=== PATIENT | female | born 1950 | race Caucasian/White ===

== ENCOUNTER → 2016-12-24 | Outpatient (CLI) | payer OTHER ==
[~2016-12-24] MED LIST: ASCO10004 PO; CALC1TAB4 PO; FLUO20TA25 PO; MULT-709 PO; OMEG1CAP23 PO; OMEP40CA6 PO; OMNIPAQUE 350 MG/ML, 100ML BOTTLE ONE; TRAM50TA2 PO; VIT1CAPS10 PO; VITA400C43 PO
== END | disposition home or self-care (01) ==
LOC: CFH 12:16
PROVIDERS: ATTEND Otolaryngology
DX: C77.0 Secondary and unspecified malignant neoplasm of lymph nodes of head, face and neck (principal)
CPT/HCPCS: 70491; Q9967

== ENCOUNTER → 2016-12-25 | Outpatient (CLI) | payer OTHER ==
[~2016-12-25] MED LIST changes: -OMNIPAQUE 350 MG/ML, 100ML BOTTLE ONE
== END | disposition home or self-care (01) ==
LOC: PETCFH 09:13
PROVIDERS: ATTEND Otolaryngology
DX: K57.30 Diverticulosis of large intestine without perforation or abscess without bleeding (principal); C77.0 Secondary and unspecified malignant neoplasm of lymph nodes of head, face and neck; K46.9 Unspecified abdominal hernia without obstruction or gangrene; Z90.49 Acquired absence of other specified parts of digestive tract
CPT/HCPCS: 78815; A9552

== ENCOUNTER 2016-12-27 09:44 | Inpatient (IN) | payer OTHER ==
[2016-12-24 09:28] LABS: HEMOGLOBIN 15.6 g/dL (11.7-16.4); WHITE BLOOD COUNT 7.6 x10^3/uL (3.4-10)
[2016-12-24 09:37] LABS: ASPARTATE AMINO TRANSFERASE 25 U/L (15-37); BLOOD UREA NITROGEN 10 mg/dL (7-18)
[~2016-12-27] VITALS: Ht 163.8 cm; Wt 72.0 kg
[2016-12-27] MEDS ORDERED: LACTATED RINGERS 1,000 ML IV SCH (10:13)
[2016-12-27 10:14] VITALS: BP 152/77
[2016-12-27] MEDS ORDERED: BACITRACIN OINT 500U/GM, 15 GM ONE (11:44)
[2016-12-27] MEDS ORDERED: OXYMETAZOLINE NASAL SPRAY 0.05%, 15ML ONE (11:44)
[2016-12-27] MEDS ORDERED: EPINEPHRINE 1 MG/ML, 1ML ONE (11:44)
[2016-12-27] MEDS ORDERED: LIDOCAINE/PF 1%, 30ML ONE (11:44)
[2016-12-27] MEDS ORDERED: EPINEPHRINE TOPICAL SOLN 1 MG/ML, 30ML ONE (11:44)
[2016-12-27] MEDS ORDERED: FENTANYL PF 100 MCG/2ML ONE ×4 (11:46→16:18)
[2016-12-27] MEDS ORDERED: MIDAZOLAM 1 MG/ML, 2ML ONE (11:46)
[2016-12-27] MEDS ORDERED: KETAMINE 10 MG/ML, 20ML ONE ×2 (11:46→12:43)
[2016-12-27] MEDS ORDERED: ROCURONIUM 10 MG/ML ONE (12:43)
[2016-12-27] MEDS ORDERED: ONDANSETRON 2MG/ML, 2ML ONE (12:43)
[2016-12-27] MEDS ORDERED: SUCCINYLCHOLINE 20 MG/ML, 10ML ONE (12:43)
[2016-12-27] MEDS ORDERED: GLYCOPYRROLATE 0.2MG/1ML ONE (12:43)
[2016-12-27] MEDS ORDERED: DEXAMETHASONE 4 MG/ML, 1ML ONE (12:43)
[2016-12-27] MEDS ORDERED: PROPOFOL 10 MG/ML, 20ML ONE (12:43)
[2016-12-27] MEDS ORDERED: NEOSTIGMINE 1 MG/ML, 10ML ONE (12:43)
[2016-12-27] MEDS ORDERED: CEFAZOLIN 1,000 MG ONE (12:43)
[2016-12-27] MEDS ORDERED: HYDROmorphone 1 MG/ML, 1ML ONE ×2 (15:13→16:45)
[2016-12-27] MEDS ORDERED: PROMETHAZINE 25 MG/ML, 1ML IV PRN (16:00)
[2016-12-27] MEDS ORDERED: ALBUTEROL SULFATE 2.5 MG/3 ML NPPB PRN (16:00)
[2016-12-27] MEDS ORDERED: OXYcodone 5 MG/5 ML ORAL.SOL UDC PO PRN (16:00)
[2016-12-27] MEDS ORDERED: hydrALAzine 20 MG/ML, 1ML IV PRN (16:00)
[2016-12-27] MEDS ORDERED: ACETAMINOPHEN 325 MG TABLET PO PRN (16:00)
[2016-12-27] MEDS ORDERED: HYDROmorphone 1 MG/ML, 1ML IV PRN (16:00)
[2016-12-27] MEDS: FENTANYL PF 100 MCG/2ML IV PRN ×4 (16:00→16:42)
[2016-12-27] MEDS ORDERED: MIDAZOLAM 1 MG/ML, 2ML IV PRN (16:00)
[2016-12-27] MEDS ORDERED: hydrALAzine 20 MG/ML, 1ML ONE (16:09)
[2016-12-27] MEDS ORDERED: ACETAMINOPHEN 650 MG/20.3 ML UDC ONE (16:14)
[2016-12-27] MEDS ORDERED: OXYcodone 5 MG/5 ML ORAL.SOL UDC ONE (16:14)
[2016-12-27] MEDS ORDERED: PROMETHAZINE 25 MG/ML, 1ML ONE (16:35)
[2016-12-27] MEDS ORDERED: ONDANSETRON 2MG/ML, 2ML IV PRN (17:30)
[2016-12-27] MEDS ORDERED: MORPHINE SULFATE 4 MG/ML, 1ML IV PRN (17:30)
[2016-12-27 18:19] VITALS: BP 155/91
[2016-12-27] MEDS: OXYcodone/APAP 10/325MG TABLET PO PRN ×2 (19:21→23:31)
[2016-12-27] MEDS: OMEPRAZOLE 20 MG CAPSULE.DR PO SCH (20:08)
[2016-12-27] MEDS: CEFAZOLIN PMX 1GM/50ML 50 ML IVPB SCH (20:52)
[2016-12-27 23:43] VITALS: BP 123/79
[2016-12-27 23:48] VITALS: BP 138/71
[2016-12-28] MEDS: OXYcodone/APAP 10/325MG TABLET PO PRN ×6 (03:25→23:59)
[2016-12-28 03:30] VITALS: BP 134/64
[2016-12-28] MEDS: CEFAZOLIN PMX 1GM/50ML 50 ML IVPB SCH ×3 (04:49→21:18)
[2016-12-28 07:52] VITALS: BP 136/81
[2016-12-28] MEDS: MUPIROCIN OINT 2%, 22GM TP SCH ×2 (08:54→21:19)
[2016-12-28] MEDS: NICOTINE 14MG/24 HR PATCH.TD24 TD SCH (08:54)
[2016-12-28] MEDS: OMEGA-3/FISH OIL CAPSULE PO SCH (08:54)
[2016-12-28] MEDS: FLUOXETINE 20 MG CAPSULE PO SCH (08:54)
[2016-12-28] MEDS: CALCIUM/VITAMIN D3 250-125 TABLET PO SCH (08:54)
[2016-12-28 13:47] VITALS: BP 111/57
[2016-12-28] MEDS: OMEPRAZOLE 20 MG CAPSULE.DR PO SCH (20:05)
[2016-12-28 20:06] VITALS: BP 136/62
[2016-12-29 00:41] VITALS: BP 129/69
[2016-12-29] MEDS: OXYcodone/APAP 10/325MG TABLET PO PRN ×5 (03:52→20:33)
[2016-12-29] MEDS: CEFAZOLIN PMX 1GM/50ML 50 ML IVPB SCH ×3 (04:57→20:33)
[2016-12-29 07:51] VITALS: BP 130/79
[2016-12-29] MEDS: CALCIUM/VITAMIN D3 250-125 TABLET PO SCH (08:17)
[2016-12-29] MEDS: NICOTINE 14MG/24 HR PATCH.TD24 TD SCH (08:17)
[2016-12-29] MEDS: FLUOXETINE 20 MG CAPSULE PO SCH (08:17)
[2016-12-29] MEDS: MUPIROCIN OINT 2%, 22GM TP SCH ×2 (08:17→20:34)
[2016-12-29] MEDS: OMEGA-3/FISH OIL CAPSULE PO SCH (08:17)
[2016-12-29 15:31] VITALS: BP 149/79
[2016-12-29 20:17] VITALS: BP 160/82
[2016-12-29] MEDS: OMEPRAZOLE 20 MG CAPSULE.DR PO SCH (20:34)
[2016-12-30] MEDS: OXYcodone/APAP 10/325MG TABLET PO PRN ×3 (00:39→11:44)
[2016-12-30 01:47] VITALS: BP 123/64
[2016-12-30] MEDS: ALBUTEROL/IPRATROPIUM 2.5MG/0.5MG, 3 ML HHN SCH ×2 (02:15→10:50)
[2016-12-30] MEDS: CEFAZOLIN PMX 1GM/50ML 50 ML IVPB SCH ×2 (04:52→13:30)
[2016-12-30] MEDS: CALCIUM/VITAMIN D3 250-125 TABLET PO SCH (07:54)
[2016-12-30] MEDS: NICOTINE 14MG/24 HR PATCH.TD24 TD SCH (07:54)
[2016-12-30] MEDS: MUPIROCIN OINT 2%, 22GM TP SCH (07:54)
[2016-12-30] MEDS: FLUOXETINE 20 MG CAPSULE PO SCH (07:54)
[2016-12-30] MEDS: OMEGA-3/FISH OIL CAPSULE PO SCH (07:54)
[2016-12-30 08:20] VITALS: BP 123/76
[2016-12-30] MEDS ORDERED: FLUTICASONE/VILANTEROL 200-25MCG/INH INH SCH (09:00)
[2016-12-30] MEDS ORDERED: OMNIPAQUE 350 MG/ML, 100ML BOTTLE ONE (09:26)
[2016-12-30 09:56] LABS: BLOOD UREA NITROGEN 2 mg/dL (7-18)
[2016-12-30 10:01] LABS: IS PT STATUS REG ER OR PRE ER? NO
[2016-12-30] MEDS ORDERED: POTASSIUM CHLORIDE 20 MEQ TAB.ER.PRT PO ONE (11:00)
[2016-12-30 14:11] VITALS: BP 122/68
== END 2016-12-30 15:05 | disposition home or self-care (01) | DRG 579 ==
LOC: OUT 09:44 → 4NOR 17:13 → OUT 17:17 → OBSVTOIN 17:17 → 4NOR 17:17 → DCLOUNGE 12-30 14:35
PROVIDERS: ADMIT Otolaryngology; ATTEND Otolaryngology
PROC: 0KT Muscles, Resection (ICD-10-PCS; 2016-12-27)
PROC: 07T20ZZ Resection of Left Neck Lymphatic, Open Approach (ICD-10-PCS; principal; 2016-12-27 12:00)
PROC: 0CJS8ZZ Inspection of Larynx, Via Natural or Artificial Opening Endoscopic (ICD-10-PCS; 2016-12-27 12:00)
DX: C44.42 Squamous cell carcinoma of skin of scalp and neck (principal); J96.01 Acute respiratory failure with hypoxia; K21.9 Gastro-esophageal reflux disease without esophagitis; J43.9 Emphysema, unspecified; F17.210 Nicotine dependence, cigarettes, uncomplicated; Z87.11 Personal history of peptic ulcer disease; Z98.49 Cataract extraction status, unspecified eye; Z82.49 Family history of ischemic heart disease and other diseases of the circulatory system
CPT/HCPCS: 36415; 71020; 71275; 80048; 80053; 84484; 85025; 86850; 86900; 88307; 93005; 94640; C1729; J0171; J0690; J1100; J1170; J2250; J2405; J2550; J2704; J2710; J3010; J3490; J7620; Q9967; G0378; J0330; J7120

== ENCOUNTER → 2017-03-03 | Outpatient (CLI) | payer OTHER | END | disposition home or self-care (01) | LOC: ROC 09:23 | PROVIDERS: ATTEND Radiology Radiation Oncology | DX: C76.0 Malignant neoplasm of head, face and neck (principal); Z88.5 Allergy status to narcotic agent | CPT/HCPCS: 99214; G0463 ==

== ENCOUNTER 2017-05-16 07:01 | Inpatient (IN) | payer OTHER ==
[~2017-05-16] VITALS: Ht 162.6 cm; Wt 66.7 kg
[2017-05-16] MEDS ORDERED: SODIUM CHLORIDE FLUSH 10ML SYR IVF ONE (07:30)
[2017-05-16 07:50] LABS: INTERNATIONAL NORMALIZED RATIO 1.14 (0.93-1.1); PROTHROMBIN TIME 11.8 Seconds (9.6-11.5)
[2017-05-16 07:54] LABS: ALANINE AMINOTRANSFERASE 11 U/L (12-78); ALBUMIN 2.3 g/dL (3.4-5.0); ANION GAP 5 mmol/L (5-15); CALCIUM 7.6 mg/dL (8.5-10.1); CHLORIDE 106 mmol/L (98-107); CREATININE 0.44 mg/dL (0.55-1.02)
[2017-05-16 07:56] LABS: ALKALINE PHOSPHATASE 33 U/L (45-117); BASOPHILS % (AUTO) 0 % (0-1); BILIRUBIN,TOTAL 0.3 mg/dL (0.2-1.0); EOSINOPHILS # (AUTO) 0.01 x10^3/uL (0-0.4); EOSINOPHILS % (AUTO) 0 % (1-7); LYMPHOCYTES # (AUTO) 0.27 x10^3/uL (1-3.4); LYMPHOCYTES % (AUTO) 4 % (22-44); MD NO; MEAN CORPUSCULAR HEMOGLOBIN 32.6 pg (27.0-34.8); MEAN CORPUSCULAR HGB CONC 33.3 g/dL (32.4-35.8); MEAN CORPUSCULAR VOLUME 97.8 fL (80-100); MEAN PLATELET VOLUME 7.4 fL (7.4-10.4); MONOCYTES # (AUTO) 0.49 x10^3/uL (0.2-0.8); MONOCYTES % (AUTO) 7 % (2-9); NEUTROPHILS # (AUTO) 5.84 x10^3/uL (1.8-6.8); NEUTROPHILS % (AUTO) 88 % (42-75); PLATELET COUNT 159 x10^3/uL (130-400); RED CELL DISTRIBUTION WIDTH 14.1 % (9.6-15.2); TOTAL PROTEIN 5.1 g/dL (6.4-8.2)
[2017-05-16] MEDS ORDERED: OMNIPAQUE 350 MG/ML, 100ML BOTTLE ONE (08:37)
[2017-05-16] MEDS ORDERED: MAGIC MOUTHWASH PO (09:26)
[2017-05-16] MEDS ORDERED: SODIUM CHLORIDE 0.9% 1,000ML IVBOLUS ONE ×2 (11:00→13:30)
[2017-05-16] MEDS ORDERED: HYDROcodone/APAP 5/325 TABLET ONE (11:32)
[2017-05-16] MEDS: SODIUM CHLORIDE 0.9% 1,000 ML IV SCH (11:47)
[2017-05-16] MEDS ORDERED: HYDROcodone/APAP 5/325 TABLET PO ONE (12:00)
[2017-05-16] MEDS: PANTOPROZOLE 40MG TABLET PO SCH (12:00)
[2017-05-16] MEDS ORDERED: BISACODYL 10 MG SUPP PR PRN (12:00)
[2017-05-16] MEDS ORDERED: DOCUSATE 100 MG CAPSULE PO PRN (12:00)
[2017-05-16] MEDS ORDERED: POLYETHYLENE GLYCOL 17 GM PACKET PO PRN (12:00)
[2017-05-16] MEDS ORDERED: MAGIC MOUTHWASH PO SCH (12:00)
[2017-05-16] MEDS ORDERED: LABETALOL 5MG/ML, 20ML IVPush PRN (12:00)
[2017-05-16] MEDS: SUCRALFATE 1 GM/10 ML UDC PO SCH ×2 (16:00→21:30)
[2017-05-16 17:05] VITALS: BP 103/60
[2017-05-16] MEDS: maalox/diphenh/lido/sucralfate 5 ML PO SCH ×2 (17:30→23:18)
[2017-05-16 20:22] VITALS: BP 100/62
[2017-05-17] VITALS (20 sets, daily range): BP systolic 76–123; BP diastolic 46–79
[2017-05-17] MEDS: PANTOPROZOLE 40MG TABLET PO SCH (00:48)
[2017-05-17] MEDS: SODIUM CHLORIDE 0.9% 1,000 ML IV SCH (00:49)
[2017-05-17] MEDS: maalox/diphenh/lido/sucralfate 5 ML PO SCH ×5 (05:30→23:03)
[2017-05-17] MEDS: SUCRALFATE 1 GM/10 ML UDC PO SCH ×4 (08:16→21:00)
[2017-05-17] MEDS: ONDANSETRON 2MG/ML, 2ML IVPush PRN (08:36)
[2017-05-17] MEDS ORDERED: TEMPLATE NON-FORMULARY MED. (Vit C/Vit E/Lutein/Min/Omega-3** (Ocuvite Softgel**) 1 TAB) PO SCH (09:00)
[2017-05-17] MEDS ORDERED: PANTOPRAZOLE 80 MG in SODIUM CHLORIDE 0.9% 50 ML IV ONE (09:00)
[2017-05-17 09:06] LABS: ANION GAP 6 mmol/L (5-15); CALCIUM 7.2 mg/dL (8.5-10.1); CHLORIDE 104 mmol/L (98-107); CREATININE 0.28 mg/dL (0.55-1.02)
[2017-05-17] MEDS: VITAMIN E 400 UNITS CAPSULE PO SCH ×2 (09:19→09:26)
[2017-05-17] MEDS: OMEGA-3/FISH OIL CAPSULE PO SCH ×2 (09:19→09:26)
[2017-05-17] MEDS: MULTIVITAMINS/MINERALS TABLET PO SCH ×2 (09:20→09:26)
[2017-05-17] MEDS: FLUOXETINE 20 MG CAPSULE PO SCH (09:20)
[2017-05-17] MEDS: CALCIUM/VITAMIN D3 250-125 TABLET PO SCH ×2 (09:20→09:26)
[2017-05-17] MEDS: ASCORBIC ACID 500 MG TABLET PO SCH ×2 (09:20→09:26)
[2017-05-17 09:42] LABS: MEAN CORPUSCULAR HEMOGLOBIN 30.9 pg (27.0-34.8); MEAN CORPUSCULAR HGB CONC 34.2 g/dL (32.4-35.8); MEAN CORPUSCULAR VOLUME 90.4 fL (80-100); MEAN PLATELET VOLUME 7.9 fL (7.4-10.4); PLATELET COUNT 118 x10^3/uL (130-400); RED CELL DISTRIBUTION WIDTH 19.6 % (9.6-15.2)
[2017-05-17 10:12] LABS: MD YES
[2017-05-17 10:22] LABS: LYMPH#(MANUAL) 0.31 x10^3/uL (1-3.4); LYMPHS% (MANUAL) 6 % (22-44); MONOS#(MANUAL) 0.21 x10^3/uL (0.3-2.7); MONOS% (MANUAL) 4 % (2-9); SEG#(MANUAL) 4.68 x10^3/uL (1.8-6.8); SEGS% (MANUAL) 90 % (42-75)
[2017-05-17 10:25] LABS: <PLATELET ESTIMATE> ADEQUATE
[2017-05-17 10:26] LABS: <PLT MORPHOLOGY> NORMAL PLT MORPH; ANISOCYTOSIS 1+
[2017-05-17] MEDS: PANTOPRAZOLE 80 MG in SODIUM CHLORIDE 0.9% 100 ML IV SCH ×2 (11:47→23:03)
[2017-05-17] MEDS ORDERED: DIPHENHYDRAMINE 50 MG/ML, 1ML IVPush ONE (14:00)
[2017-05-17] MEDS ORDERED: ACETAMINOPHEN 325 MG TABLET PO ONE (14:00)
[2017-05-18] VITALS (7 sets, daily range): BP systolic 88–128; BP diastolic 49–82
[2017-05-18] MEDS: maalox/diphenh/lido/sucralfate 5 ML PO SCH ×4 (05:30→23:30)
[2017-05-18 05:40] LABS: BASOPHILS # (AUTO) 0.01 x10^3/uL (0-0.1); BASOPHILS % (AUTO) 0 % (0-1); EOSINOPHILS # (AUTO) 0.03 x10^3/uL (0-0.4); EOSINOPHILS % (AUTO) 1 % (1-7); LYMPHOCYTES # (AUTO) 0.33 x10^3/uL (1-3.4); LYMPHOCYTES % (AUTO) 6 % (22-44); MD NO; MEAN CORPUSCULAR HEMOGLOBIN 31.1 pg (27.0-34.8); MEAN CORPUSCULAR HGB CONC 33.8 g/dL (32.4-35.8); MEAN CORPUSCULAR VOLUME 92.1 fL (80-100); MEAN PLATELET VOLUME 7.5 fL (7.4-10.4); MONOCYTES # (AUTO) 0.46 x10^3/uL (0.2-0.8); MONOCYTES % (AUTO) 8 % (2-9); NEUTROPHILS # (AUTO) 5.08 x10^3/uL (1.8-6.8); NEUTROPHILS % (AUTO) 86 % (42-75); PLATELET COUNT 109 x10^3/uL (130-400); RED BLOOD COUNT 2.96 x10^6/uL (3.82-5.3); RED CELL DISTRIBUTION WIDTH 17.6 % (9.6-15.2)
[2017-05-18 05:44] LABS: CHLORIDE 106 mmol/L (98-107)
[2017-05-18 05:56] LABS: ANION GAP 7 mmol/L (5-15); CALCIUM 7.3 mg/dL (8.5-10.1); CREATININE 0.27 mg/dL (0.55-1.02)
[2017-05-18] MEDS: SUCRALFATE 1 GM/10 ML UDC PO SCH ×4 (08:22→21:00)
[2017-05-18] MEDS: FLUOXETINE 20 MG CAPSULE PO SCH (08:23)
[2017-05-18] MEDS: ACETAMINOPHEN 325 MG TABLET PO PRN ×2 (08:23→15:10)
[2017-05-18] MEDS: OMEGA-3/FISH OIL CAPSULE PO SCH (08:23)
[2017-05-18] MEDS: MULTIVITAMINS/MINERALS TABLET PO SCH (08:23)
[2017-05-18] MEDS: CALCIUM/VITAMIN D3 250-125 TABLET PO SCH (08:24)
[2017-05-18] MEDS: VITAMIN E 400 UNITS CAPSULE PO SCH (08:24)
[2017-05-18] MEDS: ASCORBIC ACID 500 MG TABLET PO SCH (08:24)
[2017-05-18] MEDS: PANTOPRAZOLE 80 MG in SODIUM CHLORIDE 0.9% 100 ML IV SCH ×2 (09:05→18:55)
[2017-05-18] MEDS ORDERED: SODIUM CHLORIDE 0.9% 1,000ML IVBOLUS ONE (10:30)
[2017-05-18] MEDS: SODIUM CHLORIDE 0.9% 1,000 ML IV SCH (16:22)
[2017-05-18] MEDS ORDERED: GOLYTELY 4,000ML ORAL.SOL PO ONE (17:00)
[2017-05-18 19:07] LABS: HEMOGRAM NOTE RECHECKED
[2017-05-19] VITALS (10 sets, daily range): BP systolic 98–120; BP diastolic 54–83
[2017-05-19] MEDS: SODIUM CHLORIDE 0.9% 1,000 ML IV SCH ×2 (04:48→14:00)
[2017-05-19] MEDS: maalox/diphenh/lido/sucralfate 5 ML PO SCH ×4 (05:30→23:30)
[2017-05-19 05:35] LABS: MEAN CORPUSCULAR HGB CONC 33.8 g/dL (32.4-35.8); MEAN CORPUSCULAR VOLUME 91.7 fL (80-100); MEAN PLATELET VOLUME 7.2 fL (7.4-10.4); PLATELET COUNT 98 x10^3/uL (130-400); RED BLOOD COUNT 2.44 x10^6/uL (3.82-5.3); RED CELL DISTRIBUTION WIDTH 17.3 % (9.6-15.2)
[2017-05-19 05:55] LABS: ANION GAP 5 mmol/L (5-15); CHLORIDE 106 mmol/L (98-107)
[2017-05-19 05:56] LABS: CREATININE 0.16 mg/dL (0.55-1.02)
[2017-05-19] MEDS: PANTOPRAZOLE 80 MG in SODIUM CHLORIDE 0.9% 100 ML IV SCH ×2 (06:16→16:19)
[2017-05-19 06:17] LABS: BASOPHILS # (AUTO) 0.01 x10^3/uL (0-0.1); BASOPHILS % (AUTO) 0 % (0-1); EOSINOPHILS # (AUTO) 0.03 x10^3/uL (0-0.4); EOSINOPHILS % (AUTO) 1 % (1-7); LYMPHOCYTES # (AUTO) 0.18 x10^3/uL (1-3.4); LYMPHOCYTES % (AUTO) 5 % (22-44); MD SCAN; MONOCYTES # (AUTO) 0.35 x10^3/uL (0.2-0.8); MONOCYTES % (AUTO) 10 % (2-9); NEUTROPHILS % (AUTO) 84 % (42-75)
[2017-05-19] MEDS: SUCRALFATE 1 GM/10 ML UDC PO SCH ×4 (07:00→19:59)
[2017-05-19] MEDS: ACETAMINOPHEN 325 MG TABLET PO PRN (08:16)
[2017-05-19] MEDS: MULTIVITAMINS/MINERALS TABLET PO SCH (09:00)
[2017-05-19] MEDS: CALCIUM/VITAMIN D3 250-125 TABLET PO SCH (09:00)
[2017-05-19] MEDS: FLUOXETINE 20 MG CAPSULE PO SCH (09:49)
[2017-05-19] MEDS ORDERED: PROPOFOL 10 MG/ML, 50ML ONE (14:02)
[2017-05-19] MEDS ORDERED: PROPOFOL 10 MG/ML, 20ML ONE (14:02)
[2017-05-19] MEDS ORDERED: EPHEDRINE 50 MG/ML, 1ML IVPush PRN (15:00)
[2017-05-19] MEDS ORDERED: PROMETHAZINE 25 MG/ML, 1ML IV PRN (15:00)
[2017-05-19] MEDS ORDERED: ONDANSETRON 2MG/ML, 2ML IVPush PRN (15:00)
[2017-05-19] MEDS ORDERED: OXYcodone 5 MG/5 ML ORAL.SOL UDC PO PRN (15:00)
[2017-05-19] MEDS ORDERED: MIDAZOLAM 1 MG/ML, 5ML IV PRN (15:00)
[2017-05-19] MEDS ORDERED: HYDROmorphone 1 MG/ML, 1ML IV PRN (15:00)
[2017-05-19] MEDS ORDERED: LABETALOL 5MG/ML, 20ML IV PRN (15:00)
[2017-05-19] MEDS ORDERED: FENTANYL PF 100 MCG/2ML IV PRN (15:00)
[2017-05-19] MEDS ORDERED: LORazepam 2 MG/ML, 1ML IVPush PRN (15:00)
[2017-05-19] MEDS: POTASSIUM CHLORIDE 20 MEQ TAB.ER.PRT PO SCH (17:08)
[2017-05-20 02:15] VITALS: BP 120/50
[2017-05-20] MEDS: PANTOPRAZOLE 80 MG in SODIUM CHLORIDE 0.9% 100 ML IV SCH (02:16)
[2017-05-20 03:27] LABS: ANION GAP 6 mmol/L (5-15); CALCIUM 7.4 mg/dL (8.5-10.1); CHLORIDE 106 mmol/L (98-107)
[2017-05-20 03:28] LABS: CREATININE < 0.15 mg/dL (0.55-1.02)
[2017-05-20] MEDS: maalox/diphenh/lido/sucralfate 5 ML PO SCH ×2 (05:30→11:30)
[2017-05-20] MEDS: ONDANSETRON 2MG/ML, 2ML IVPush PRN (07:50)
[2017-05-20] MEDS: POTASSIUM CHLORIDE 20 MEQ TAB.ER.PRT PO SCH (07:53)
[2017-05-20] MEDS: SUCRALFATE 1 GM/10 ML UDC PO SCH ×3 (07:53→14:55)
[2017-05-20] MEDS: FLUOXETINE 20 MG CAPSULE PO SCH (07:53)
[2017-05-20] MEDS: MULTIVITAMINS/MINERALS TABLET PO SCH (07:53)
[2017-05-20] MEDS: CALCIUM/VITAMIN D3 250-125 TABLET PO SCH (07:54)
[2017-05-20] MEDS ORDERED: MAGNESIUM SULFATE PMX 4GM/100M 100 ML IV ONE (09:00)
[2017-05-20 10:32] VITALS: BP 115/65
[2017-05-20] MEDS: ACETAMINOPHEN 325 MG TABLET PO PRN (11:30)
[2017-05-20] MEDS ORDERED: SUCR1TAB33 PO (12:30)
[2017-05-20] MEDS ORDERED: OMEP40CA6 PO (12:30)
[2017-05-20] MEDS ORDERED: CLAR500T PO (12:30)
[2017-05-20] MEDS ORDERED: AMOX-291 PO (12:30)
[2017-05-20 15:16] VITALS: BP 116/63
[2017-05-20] MEDS ORDERED: POTASSIUM CHLORIDE 20 MEQ TAB.ER.PRT PO SCH (17:00)
== END 2017-05-20 16:00 | disposition home or self-care (01) | DRG 377 ==
LOC: ED 07:17 → EDIP 10:39 → 4WST 16:53 → DCLOUNGE 05-20 15:40
PROVIDERS: ADMIT Hospitalist; ATTEND Family Medicine
PROC: 30233N1 Transfusion of Nonautologous Red Blood Cells into Peripheral Vein, Percutaneous Approach (ICD-10-PCS; principal; 2017-05-17)
PROC: 3E1H88Z Irrigation of Lower GI using Irrigating Substance, Via Natural or Artificial Opening Endoscopic (ICD-10-PCS; 2017-05-17)
PROC: 0DJD8ZZ Inspection of Lower Intestinal Tract, Via Natural or Artificial Opening Endoscopic (ICD-10-PCS; 2017-05-19)
PROC: 0DJ08ZZ Inspection of Upper Intestinal Tract, Via Natural or Artificial Opening Endoscopic (ICD-10-PCS; 2017-05-19 13:45)
DX: K57.31 Diverticulosis of large intestine without perforation or abscess with bleeding (principal); E43 Unspecified severe protein-calorie malnutrition; D62 Acute posthemorrhagic anemia; E44.0 Moderate protein-calorie malnutrition; G90.9 Disorder of the autonomic nervous system, unspecified; J43.9 Emphysema, unspecified; F17.210 Nicotine dependence, cigarettes, uncomplicated; K43.9 Ventral hernia without obstruction or gangrene; K64.8 Other hemorrhoids; Z66 Do not resuscitate; Z82.49 Family history of ischemic heart disease and other diseases of the circulatory system; Z87.11 Personal history of peptic ulcer disease; Z92.3 Personal history of irradiation; Z90.49 Acquired absence of other specified parts of digestive tract; Z80.9 Family history of malignant neoplasm, unspecified; Z79.899 Other long term (current) drug therapy; Z68.25 Body mass index [BMI] 25.0-25.9, adult
CPT/HCPCS: 36415; 36430; 74177; 78278; 80048; 80053; 83735; 85014; 85018; 85025; 85610; 85730; 86677; 86850; 86900; 86923; 93005; J2405; J2704; Q9967; A9560; C9113; C9898; J1200; J3475; J7030; P9016

== ENCOUNTER 2017-09-15 08:49 | Inpatient (IN) | payer OTHER ==
[~2017-09-15] VITALS: Ht 162.6 cm; Wt 63.0 kg
[~2017-09-15 08:49] MED LIST changes: +AMOX-291 PO; +CLAR500T PO; +MAGIC MOUTHWASH PO; +SUCR1TAB33 PO
[2017-09-15 09:28] LABS: MEAN CORPUSCULAR HEMOGLOBIN 31.9 pg (27.0-34.8); MEAN CORPUSCULAR VOLUME 96.6 fL (80-100); PLATELET COUNT 216 x10^3/uL (130-400); RED BLOOD COUNT 4.95 x10^6/uL (3.82-5.3); RED CELL DISTRIBUTION WIDTH 14.8 % (9.6-15.2)
[2017-09-15] MEDS ORDERED: SODIUM CHLORIDE FLUSH 10ML SYR IVF ONE ×2 (09:30→11:00)
[2017-09-15 09:40] LABS: ALANINE AMINOTRANSFERASE 16 U/L (12-78); ALBUMIN 3.7 g/dL (3.4-5.0); ANION GAP 7 mmol/L (5-15); CALCIUM 8.8 mg/dL (8.5-10.1); CHLORIDE 93 mmol/L (98-107); CREATININE 0.58 mg/dL (0.55-1.02)
[2017-09-15 09:43] LABS: ALKALINE PHOSPHATASE 53 U/L (45-117); BILIRUBIN,TOTAL 0.5 mg/dL (0.2-1.0); TOTAL PROTEIN 7.9 g/dL (6.4-8.2)
[2017-09-15 09:53] LABS: MD YES
[2017-09-15 10:27] LABS: <PLATELET ESTIMATE> ADEQUATE; <PLT MORPHOLOGY> NORMAL PLT MORPH; <RBC MORPHOLOGY> NORMAL; HEMOGRAM NOTE RECHECKED; LYMPHS% (MANUAL) 3 % (22-44); MONOS% (MANUAL) 1 % (2-9); SEGS% (MANUAL) 96 % (42-75)
[2017-09-15] MEDS ORDERED: OMNIPAQUE 350 MG/ML, 100ML BOTTLE ONE (10:27)
[2017-09-15] MEDS ORDERED: SODIUM CHLORIDE 0.9% 1,000ML IVBOLUS ONE (11:00)
[2017-09-15] MEDS ORDERED: PROCHLORPERAZINE 5 MG/ML, 2ML IVPush ONE (11:30)
[2017-09-15] MEDS ORDERED: morphine SULFATE 10 MG/ML, 1ML IVPush ONE (11:30)
[2017-09-15] MEDS ORDERED: PROCHLORPERAZINE 5 MG/ML, 2ML ONE (11:32)
[2017-09-15] MEDS ORDERED: MORPHINE SULFATE 4 MG/ML, 1ML ONE (11:32)
[2017-09-15 11:46] LABS: MICROSCOPIC INDICATED
[2017-09-15] MEDS ORDERED: SODIUM CHLORIDE FLUSH 10ML SYR IVF PRN (12:00)
[2017-09-15 12:10] LABS: CULTURE INDICATED? NO
[2017-09-15] MEDS ORDERED: OMEP40CA6 PO (12:30)
[2017-09-15 14:00] VITALS: BP 121/70
[2017-09-15] MEDS: D5%-0.45NACL+KCL 20MEQ 1,000 ML IV SCH (14:12)
[2017-09-15] MEDS: ENOXAPARIN 40 MG/0.4 ML SQ SCH (14:13)
[2017-09-15] MEDS: KETOROLAC 30 MG/1 ML IM PRN ×2 (14:13→19:50)
[2017-09-15 19:07] VITALS: BP 120/67
[2017-09-16] MEDS: D5%-0.45NACL+KCL 20MEQ 1,000 ML IV SCH ×3 (00:51→19:02)
[2017-09-16] MEDS ORDERED: ONDANSETRON ODT 4 MG ONE (00:56)
[2017-09-16] MEDS: ONDANSETRON ODT 4 MG PO PRN ×2 (00:59→18:12)
[2017-09-16 01:29] VITALS: BP 169/72
[2017-09-16] MEDS: KETOROLAC 30 MG/1 ML IM PRN (01:40)
[2017-09-16 04:22] LABS: BASOPHILS # (AUTO) 0.01 x10^3/uL (0-0.1); BASOPHILS % (AUTO) 0 % (0-1); EOSINOPHILS # (AUTO) 0.01 x10^3/uL (0-0.4); EOSINOPHILS % (AUTO) 0 % (1-7); LYMPHOCYTES % (AUTO) 4 % (22-44); MD NO; MEAN CORPUSCULAR HEMOGLOBIN 32.4 pg (27.0-34.8); MEAN CORPUSCULAR HGB CONC 33.1 g/dL (32.4-35.8); MEAN PLATELET VOLUME 7.1 fL (7.4-10.4); MONOCYTES # (AUTO) 0.54 x10^3/uL (0.2-0.8); MONOCYTES % (AUTO) 7 % (2-9); NEUTROPHILS # (AUTO) 7.32 x10^3/uL (1.8-6.8); NEUTROPHILS % (AUTO) 90 % (42-75); PLATELET COUNT 191 x10^3/uL (130-400); RED BLOOD COUNT 4.51 x10^6/uL (3.82-5.3); RED CELL DISTRIBUTION WIDTH 15.3 % (9.6-15.2)
[2017-09-16 04:29] LABS: ANION GAP 4 mmol/L (5-15); CALCIUM 8.4 mg/dL (8.5-10.1); CHLORIDE 100 mmol/L (98-107); CREATININE 0.52 mg/dL (0.55-1.02)
[2017-09-16 07:46] VITALS: BP 136/66
[2017-09-16] MEDS: FLUOXETINE HCL 20 MG CAPSULE PO SCH (07:48)
[2017-09-16] MEDS ORDERED: MAGNESIUM CHLORIDE 64 MG TABLET.DR PO ONE (08:30)
[2017-09-16] MEDS ORDERED: OMEPRAZOLE 20 MG CAPSULE.DR PO SCH (09:00)
[2017-09-16] MEDS: KETOROLAC 30 MG/1 ML IVPush SCH ×3 (09:34→23:02)
[2017-09-16] MEDS: ENOXAPARIN 40 MG/0.4 ML SQ SCH (13:09)
[2017-09-16] MEDS ORDERED: HYDROmorphone 2 MG/ML, 1ML ONE ×2 (13:43→14:24)
[2017-09-16] MEDS: HYDROmorphone 1 MG/ML, 1ML IV PRN ×2 (13:46→14:29)
[2017-09-16 15:45] VITALS: BP 138/73
[2017-09-16 18:50] VITALS: BP 148/81
[2017-09-16] MEDS: HYDROmorphone 2 MG/ML, 1ML IV PRN (20:14)
[2017-09-16] MEDS: PANTOPRAZOLE 40 MG IV IVPush SCH (20:21)
[2017-09-17] MEDS: HYDROmorphone 2 MG/ML, 1ML IV PRN ×2 (02:26→22:01)
[2017-09-17] MEDS: D5%-0.45NACL+KCL 20MEQ 1,000 ML IV SCH ×3 (02:27→22:00)
[2017-09-17 02:48] VITALS: BP 106/61
[2017-09-17] MEDS: ONDANSETRON ODT 4 MG PO PRN (02:49)
[2017-09-17 04:50] LABS: BASOPHILS # (AUTO) 0.01 x10^3/uL (0-0.1); BASOPHILS % (AUTO) 0 % (0-1); EOSINOPHILS # (AUTO) 0.02 x10^3/uL (0-0.4); EOSINOPHILS % (AUTO) 1 % (1-7); LYMPHOCYTES # (AUTO) 0.24 x10^3/uL (1-3.4); LYMPHOCYTES % (AUTO) 5 % (22-44); MD NO; MEAN CORPUSCULAR HEMOGLOBIN 32.6 pg (27.0-34.8); MEAN CORPUSCULAR HGB CONC 33.3 g/dL (32.4-35.8); MEAN CORPUSCULAR VOLUME 97.9 fL (80-100); MONOCYTES % (AUTO) 12 % (2-9); NEUTROPHILS # (AUTO) 4.05 x10^3/uL (1.8-6.8); NEUTROPHILS % (AUTO) 82 % (42-75); PLATELET COUNT 164 x10^3/uL (130-400); RED BLOOD COUNT 4.18 x10^6/uL (3.82-5.3); RED CELL DISTRIBUTION WIDTH 14.3 % (9.6-15.2)
[2017-09-17 04:56] LABS: ALANINE AMINOTRANSFERASE 14 U/L (12-78); ALBUMIN 2.7 g/dL (3.4-5.0); ANION GAP 5 mmol/L (5-15); CALCIUM 7.7 mg/dL (8.5-10.1); CHLORIDE 99 mmol/L (98-107); CREATININE 0.38 mg/dL (0.55-1.02)
[2017-09-17 04:58] LABS: ALKALINE PHOSPHATASE 38 U/L (45-117); BILIRUBIN,TOTAL 0.8 mg/dL (0.2-1.0); TOTAL PROTEIN 5.9 g/dL (6.4-8.2)
[2017-09-17] MEDS: KETOROLAC 30 MG/1 ML IVPush SCH ×4 (05:23→23:31)
[2017-09-17] MEDS ORDERED: SODIUM CHLORIDE 0.9%, 500ML IVBOLUS ONE (06:00)
[2017-09-17] MEDS ORDERED: MAGNESIUM SULFATE PMX 4GM/100M 100 ML IV ONE (06:30)
[2017-09-17] MEDS: PANTOPRAZOLE 40 MG IV IVPush SCH ×2 (08:57→22:00)
[2017-09-17] MEDS: FLUOXETINE HCL 20 MG CAPSULE PO SCH (09:04)
[2017-09-17 11:02] VITALS: BP 127/73
[2017-09-17] MEDS: ENOXAPARIN 40 MG/0.4 ML SQ SCH (13:00)
[2017-09-17 15:51] VITALS: BP_SYST 120; BP_DIAS 72; BP_DIAS 83
[2017-09-17 20:02] VITALS: BP 136/75
[2017-09-18 00:38] VITALS: BP 153/71
[2017-09-18] MEDS: D5%-0.45NACL+KCL 20MEQ 1,000 ML IV SCH ×3 (01:38→20:29)
[2017-09-18] MEDS: KETOROLAC 30 MG/1 ML IVPush SCH ×4 (05:29→23:29)
[2017-09-18 06:43] LABS: ALANINE AMINOTRANSFERASE 16 U/L (12-78); ALBUMIN 2.6 g/dL (3.4-5.0); ANION GAP 5 mmol/L (5-15); CALCIUM 7.8 mg/dL (8.5-10.1); CHLORIDE 98 mmol/L (98-107); CREATININE 0.32 mg/dL (0.55-1.02)
[2017-09-18 06:45] LABS: ALKALINE PHOSPHATASE 36 U/L (45-117); BILIRUBIN,TOTAL 0.8 mg/dL (0.2-1.0); TOTAL PROTEIN 5.8 g/dL (6.4-8.2)
[2017-09-18 06:54] VITALS: BP 114/67
[2017-09-18] MEDS ORDERED: ENOXAPARIN 40 MG/0.4 ML SQ ONE (07:00)
[2017-09-18] MEDS: FLUOXETINE HCL 20 MG CAPSULE PO SCH (08:32)
[2017-09-18] MEDS: PANTOPRAZOLE 40 MG IV IVPush SCH ×2 (08:57→20:29)
[2017-09-18 14:14] VITALS: BP 139/72
[2017-09-18 19:53] VITALS: BP 117/75
[2017-09-19 02:20] VITALS: BP 114/72
[2017-09-19] MEDS: KETOROLAC 30 MG/1 ML IVPush SCH ×3 (04:49→17:10)
[2017-09-19] MEDS: D5%-0.45NACL+KCL 20MEQ 1,000 ML IV SCH ×2 (04:49→15:20)
[2017-09-19 05:00] LABS: BASOPHILS % (AUTO) 0 % (0-1); EOSINOPHILS # (AUTO) 0.03 x10^3/uL (0-0.4); EOSINOPHILS % (AUTO) 1 % (1-7); LYMPHOCYTES # (AUTO) 0.24 x10^3/uL (1-3.4); LYMPHOCYTES % (AUTO) 7 % (22-44); MD NO; MEAN CORPUSCULAR HEMOGLOBIN 32.8 pg (27.0-34.8); MEAN CORPUSCULAR HGB CONC 33.7 g/dL (32.4-35.8); MEAN CORPUSCULAR VOLUME 97.5 fL (80-100); MONOCYTES # (AUTO) 0.53 x10^3/uL (0.2-0.8); MONOCYTES % (AUTO) 15 % (2-9); NEUTROPHILS # (AUTO) 2.72 x10^3/uL (1.8-6.8); NEUTROPHILS % (AUTO) 77 % (42-75); PLATELET COUNT 138 x10^3/uL (130-400); RED BLOOD COUNT 4.25 x10^6/uL (3.82-5.3); RED CELL DISTRIBUTION WIDTH 13.9 % (9.6-15.2)
[2017-09-19 05:01] LABS: INTERNATIONAL NORMALIZED RATIO 1.08 (0.93-1.1); PROTHROMBIN TIME 11.2 Seconds (9.6-11.5)
[2017-09-19 05:07] LABS: ALANINE AMINOTRANSFERASE 20 U/L (12-78); ALBUMIN 2.7 g/dL (3.4-5.0); ANION GAP 5 mmol/L (5-15); CALCIUM 7.9 mg/dL (8.5-10.1); CHLORIDE 98 mmol/L (98-107)
[2017-09-19 05:09] LABS: ALKALINE PHOSPHATASE 37 U/L (45-117); BILIRUBIN,TOTAL 0.8 mg/dL (0.2-1.0); CREATININE 0.32 mg/dL (0.55-1.02); TOTAL PROTEIN 5.6 g/dL (6.4-8.2)
[2017-09-19 06:27] VITALS: BP 146/63
[2017-09-19] MEDS: FLUOXETINE HCL 20 MG CAPSULE PO SCH (09:13)
[2017-09-19] MEDS: PANTOPRAZOLE 40 MG IV IVPush SCH ×2 (09:20→20:09)
[2017-09-19] MEDS ORDERED: TPN PER PHARMACY MC PRN (09:30)
[2017-09-19] MEDS ORDERED: FILTER, DISP 1.2 MICRON FOR TPN/PVN IV PRN (11:30)
[2017-09-19 15:22] VITALS: BP 166/70
[2017-09-19] MEDS ORDERED: FAT EMULSIONS IV SCH (17:00)
[2017-09-19] MEDS ORDERED: DEXTROSE 70% IV SCH (17:00)
[2017-09-19] MEDS ORDERED: DEXTROSE 50%, 50ML SYRINGE IVPush PRN (17:00)
[2017-09-19] MEDS ORDERED: AMINO ACID 10% IV SCH (17:00)
[2017-09-19] MEDS ORDERED: DEXTROSE 10% 500 ML IV PRN (17:00)
[2017-09-19] MEDS ORDERED: [UNRECOGNIZED DRUG - OTHER] IV SCH (17:00)
[2017-09-19] MEDS: HYDROmorphone 2 MG/ML, 1ML IV PRN (18:09)
[2017-09-19 18:26] VITALS: BP 144/74
[2017-09-19] MEDS: INSULIN REGULAR MEDIUM DOSE Q6H X 48HRS SQ-INSULIN SCH (20:12)
[2017-09-20] MEDS: KETOROLAC 30 MG/1 ML IVPush SCH ×4 (00:06→17:23)
[2017-09-20 01:32] VITALS: BP 161/84
[2017-09-20] MEDS: D5%-0.45% NACL 1,000 ML IV SCH ×2 (02:12→17:36)
[2017-09-20 02:48] LABS: ALANINE AMINOTRANSFERASE 18 U/L (12-78); ALBUMIN 2.8 g/dL (3.4-5.0); ANION GAP 3 mmol/L (5-15); CALCIUM 8.1 mg/dL (8.5-10.1); CHLORIDE 102 mmol/L (98-107); CREATININE 0.34 mg/dL (0.55-1.02); TRIGLYCERIDES 64 mg/dL (50-200)
[2017-09-20 02:54] LABS: ALKALINE PHOSPHATASE 38 U/L (45-117); BILIRUBIN,TOTAL 0.5 mg/dL (0.2-1.0); PREALBUMIN 15.9 mg/dL (20.0-40.0); TOTAL PROTEIN 6.1 g/dL (6.4-8.2)
[2017-09-20] MEDS: INSULIN REGULAR MEDIUM DOSE Q6H X 48HRS SQ-INSULIN SCH ×4 (03:00→20:42)
[2017-09-20 08:39] VITALS: BP 112/78
[2017-09-20] MEDS: FLUOXETINE HCL 20 MG CAPSULE PO SCH (09:28)
[2017-09-20] MEDS: PANTOPRAZOLE 40 MG IV IVPush SCH ×2 (09:28→20:43)
[2017-09-20 12:59] VITALS: BP 126/75
[2017-09-20] MEDS: RANITIDINE 50 MG in SODIUM CHLORIDE 0.9% 100 ML IV SCH ×2 (13:21→20:44)
[2017-09-20] MEDS ORDERED: DEXTROSE 70% IV SCH (17:00)
[2017-09-20] MEDS ORDERED: FAT EMULSIONS IV SCH (17:00)
[2017-09-20] MEDS ORDERED: [UNRECOGNIZED DRUG - OTHER] IV SCH (17:00)
[2017-09-20] MEDS ORDERED: AMINO ACID 10% IV SCH (17:00)
[2017-09-20] MEDS: FILTER, DISP 1.2 MICRON FOR TPN/PVN IV PRN (17:23)
[2017-09-20 18:45] VITALS: BP 155/78
[2017-09-21] MEDS: KETOROLAC 30 MG/1 ML IVPush SCH ×2 (00:30→08:02)
[2017-09-21 01:13] VITALS: BP 164/87
[2017-09-21] MEDS: INSULIN REGULAR MEDIUM DOSE Q6H X 48HRS SQ-INSULIN SCH ×3 (03:00→15:00)
[2017-09-21] MEDS: RANITIDINE 50 MG in SODIUM CHLORIDE 0.9% 100 ML IV SCH (04:30)
[2017-09-21 04:41] LABS: ANION GAP 6 mmol/L (5-15); CALCIUM 7.9 mg/dL (8.5-10.1); CHLORIDE 99 mmol/L (98-107); CREATININE 0.39 mg/dL (0.55-1.02)
[2017-09-21] MEDS ORDERED: BENZOCAINE 20% SPRAY 0.5ML TP PRN (07:30)
[2017-09-21] MEDS ORDERED: BENZOCAINE 20% SPRAY 0.5ML TP ONE (07:30)
[2017-09-21] MEDS: PANTOPRAZOLE 40 MG IV IVPush SCH ×2 (08:02→20:23)
[2017-09-21 08:54] VITALS: BP 163/86
[2017-09-21] MEDS ORDERED: RANITIDINE 50 MG in SODIUM CHLORIDE 0.9% 100 ML IV SCH (09:00)
[2017-09-21] MEDS: FLUOXETINE HCL 20 MG CAPSULE PO SCH (09:00)
[2017-09-21] MEDS ORDERED: BENZOCAINE AEROSOL SPRAY 20%, 60ML TP PRN (10:00)
[2017-09-21] MEDS: HYDROmorphone 2 MG/ML, 1ML IV PRN ×3 (14:26→23:21)
[2017-09-21 14:51] VITALS: BP 167/87
[2017-09-21] MEDS ORDERED: DEXTROSE 70% IV SCH ×2 (17:00→18:00)
[2017-09-21] MEDS ORDERED: [UNRECOGNIZED DRUG - OTHER] IV SCH (17:00)
[2017-09-21] MEDS ORDERED: AMINO ACID 10% IV SCH ×2 (17:00→18:00)
[2017-09-21] MEDS ORDERED: FAT EMULSIONS IV SCH ×2 (17:00→18:00)
[2017-09-21] MEDS: FILTER, DISP 1.2 MICRON FOR TPN/PVN IV PRN (17:45)
[2017-09-21] MEDS ORDERED: [UNRECOGNIZED DRUG - OTHER] IV SCH (18:00)
[2017-09-21 20:13] VITALS: BP 128/73
[2017-09-21] MEDS: ONDANSETRON ODT 4 MG PO PRN (20:23)
[2017-09-22 00:52] VITALS: BP 141/84
[2017-09-22] MEDS: HYDROmorphone 2 MG/ML, 1ML IV PRN ×4 (04:44→21:46)
[2017-09-22] MEDS: ONDANSETRON ODT 4 MG PO PRN ×2 (04:48→13:30)
[2017-09-22 04:51] LABS: INTERNATIONAL NORMALIZED RATIO 1.05 (0.93-1.1); PROTHROMBIN TIME 10.9 Seconds (9.6-11.5)
[2017-09-22 04:52] LABS: ALBUMIN 2.8 g/dL (3.4-5.0); ANION GAP 7 mmol/L (5-15); CALCIUM 8.2 mg/dL (8.5-10.1); CHLORIDE 96 mmol/L (98-107)
[2017-09-22 04:54] LABS: BASOPHILS # (AUTO) 0.01 x10^3/uL (0-0.1); BASOPHILS % (AUTO) 0 % (0-1); EOSINOPHILS # (AUTO) 0.06 x10^3/uL (0-0.4); EOSINOPHILS % (AUTO) 1 % (1-7); LYMPHOCYTES # (AUTO) 0.32 x10^3/uL (1-3.4); LYMPHOCYTES % (AUTO) 6 % (22-44); MD NO; MEAN CORPUSCULAR HEMOGLOBIN 32.8 pg (27.0-34.8); MEAN CORPUSCULAR HGB CONC 33.3 g/dL (32.4-35.8); MEAN CORPUSCULAR VOLUME 98.5 fL (80-100); MEAN PLATELET VOLUME 7.2 fL (7.4-10.4); MONOCYTES # (AUTO) 0.88 x10^3/uL (0.2-0.8); MONOCYTES % (AUTO) 16 % (2-9); NEUTROPHILS # (AUTO) 4.32 x10^3/uL (1.8-6.8); NEUTROPHILS % (AUTO) 77 % (42-75); PLATELET COUNT 176 x10^3/uL (130-400); RED BLOOD COUNT 4.23 x10^6/uL (3.82-5.3); RED CELL DISTRIBUTION WIDTH 14.1 % (9.6-15.2)
[2017-09-22 04:56] LABS: ALANINE AMINOTRANSFERASE 13 U/L (12-78); ALKALINE PHOSPHATASE 40 U/L (45-117); BILIRUBIN,TOTAL 0.7 mg/dL (0.2-1.0); CREATININE 0.33 mg/dL (0.55-1.02); TOTAL PROTEIN 6.3 g/dL (6.4-8.2)
[2017-09-22] MEDS: INSULIN REGULAR MEDIUM DOSE QDAY SQ-INSULIN SCH (07:12)
[2017-09-22] MEDS: FLUOXETINE HCL 20 MG CAPSULE PO SCH (07:13)
[2017-09-22 08:14] VITALS: BP 109/64
[2017-09-22] MEDS: PANTOPRAZOLE 40 MG IV IVPush SCH ×2 (08:27→21:46)
[2017-09-22] MEDS ORDERED: ROCURONIUM 10 MG/ML,10ML ONE (10:28)
[2017-09-22] MEDS ORDERED: EPHEDRINE 50 MG/ML, 1ML ONE (10:28)
[2017-09-22] MEDS ORDERED: SUCCINYLCHOLINE 20 MG/ML, 10ML ONE (10:28)
[2017-09-22] MEDS ORDERED: NEOSTIGMINE 1 MG/ML, 10ML ONE (10:28)
[2017-09-22] MEDS ORDERED: DEXAMETHASONE 4 MG/ML, 1ML ONE (10:28)
[2017-09-22] MEDS ORDERED: PHENYLEPHRINE 10 MG/ML ONE (10:28)
[2017-09-22] MEDS ORDERED: GLYCOPYRROLATE 0.2MG/1ML, 5ML ONE (10:28)
[2017-09-22] MEDS ORDERED: PROPOFOL 10 MG/ML, 20ML ONE (10:28)
[2017-09-22] MEDS ORDERED: MIDAZOLAM 1 MG/ML, 2ML ONE (13:30)
[2017-09-22] MEDS ORDERED: FENTANYL PF 250 MCG/5ML ONE (13:30)
[2017-09-22] MEDS ORDERED: PROMETHAZINE 25 MG/ML, 1ML IV PRN (16:00)
[2017-09-22] MEDS ORDERED: ACETAMINOPHEN 325 MG TABLET PO PRN (16:00)
[2017-09-22] MEDS ORDERED: FENTANYL PF 100 MCG/2ML ONE ×2 (16:35→17:06)
[2017-09-22] MEDS ORDERED: morphine SULFATE 10 MG/ML, 1ML ONE (16:59)
[2017-09-22] MEDS ORDERED: FAT EMULSIONS IV SCH (17:00)
[2017-09-22] MEDS ORDERED: DEXTROSE 70% IV SCH (17:00)
[2017-09-22] MEDS ORDERED: [UNRECOGNIZED DRUG - OTHER] IV SCH (17:00)
[2017-09-22] MEDS ORDERED: AMINO ACID 10% IV SCH (17:00)
[2017-09-22] MEDS: MORPHINE SULFATE 4 MG/ML, 1ML IVPush PRN ×2 (17:03→17:35)
[2017-09-22] MEDS: FENTANYL PF 100 MCG/2ML IV PRN ×2 (17:05→17:21)
[2017-09-22] MEDS ORDERED: HYDROmorphone 1 MG/ML, 1ML ONE (17:26)
[2017-09-22] MEDS: HYDROmorphone 1 MG/ML, 1ML IV PRN ×5 (17:26→19:28)
[2017-09-22] MEDS ORDERED: HYDROmorphone 2 MG/ML, 1ML ONE (17:55)
[2017-09-22] MEDS ORDERED: ALBUTEROL SULFATE 2.5 MG/3 ML ONE (18:06)
[2017-09-22] MEDS ORDERED: HYDROmorphone PCA 30 MG/30 ML IV PRN (21:30)
[2017-09-22] MEDS: D5%-0.45% NACL 1,000 ML IV SCH (23:24)
[2017-09-22] MEDS: FILTER, DISP 1.2 MICRON FOR TPN/PVN IV PRN (23:25)
[2017-09-23] MEDS: CEFAZOLIN PMX 1GM/50ML 50 ML IV SCH ×4 (00:22→23:59)
[2017-09-23] MEDS ORDERED: SODIUM CHLORIDE 0.9%, 500ML IVBOLUS ONE (00:30)
[2017-09-23] MEDS: HYDROmorphone 2 MG/ML, 1ML IV PRN ×6 (03:09→22:22)
[2017-09-23 04:25] LABS: ALBUMIN 2.1 g/dL (3.4-5.0); ANION GAP 7 mmol/L (5-15); CALCIUM 7.9 mg/dL (8.5-10.1); CHLORIDE 104 mmol/L (98-107)
[2017-09-23 04:27] LABS: BASOPHILS # (AUTO) 0.01 x10^3/uL (0-0.1); BASOPHILS % (AUTO) 0 % (0-1); EOSINOPHILS % (AUTO) 0 % (1-7); LYMPHOCYTES # (AUTO) 0.19 x10^3/uL (1-3.4); LYMPHOCYTES % (AUTO) 3 % (22-44); MD NO; MEAN CORPUSCULAR HEMOGLOBIN 33.1 pg (27.0-34.8); MEAN CORPUSCULAR HGB CONC 33.6 g/dL (32.4-35.8); MEAN CORPUSCULAR VOLUME 98.5 fL (80-100); MEAN PLATELET VOLUME 7.4 fL (7.4-10.4); MONOCYTES # (AUTO) 0.81 x10^3/uL (0.2-0.8); MONOCYTES % (AUTO) 14 % (2-9); NEUTROPHILS # (AUTO) 4.61 x10^3/uL (1.8-6.8); NEUTROPHILS % (AUTO) 82 % (42-75); PLATELET COUNT 169 x10^3/uL (130-400); RED BLOOD COUNT 3.06 x10^6/uL (3.82-5.3); RED CELL DISTRIBUTION WIDTH 14.2 % (9.6-15.2)
[2017-09-23 04:28] LABS: ALANINE AMINOTRANSFERASE 12 U/L (12-78); ALKALINE PHOSPHATASE 29 U/L (45-117); BILIRUBIN,TOTAL 0.4 mg/dL (0.2-1.0); CREATININE 0.57 mg/dL (0.55-1.02); TOTAL PROTEIN 4.7 g/dL (6.4-8.2)
[2017-09-23 04:31] LABS: INTERNATIONAL NORMALIZED RATIO 1.06 (0.93-1.1)
[2017-09-23 05:03] VITALS: BP 103/62
[2017-09-23] MEDS: ALBUTEROL/IPRATROPIUM 2.5MG/0.5MG, 3 ML NPPB SCH ×4 (07:23→19:11)
[2017-09-23] MEDS: INSULIN REGULAR MEDIUM DOSE QDAY SQ-INSULIN SCH (09:00)
[2017-09-23] MEDS: FLUOXETINE HCL 20 MG CAPSULE PO SCH (09:00)
[2017-09-23] MEDS: PANTOPRAZOLE 40 MG IV IVPush SCH ×2 (09:53→20:25)
[2017-09-23] MEDS: ONDANSETRON ODT 4 MG PO PRN (16:00)
[2017-09-23] MEDS ORDERED: FAT EMULSIONS IV SCH ×2 (17:00)
[2017-09-23] MEDS ORDERED: DEXTROSE 70% IV SCH ×2 (17:00)
[2017-09-23] MEDS ORDERED: [UNRECOGNIZED DRUG - OTHER] IV SCH (17:00)
[2017-09-23] MEDS ORDERED: [UNRECOGNIZED DRUG - OTHER] IV SCH (17:00)
[2017-09-23] MEDS ORDERED: AMINO ACID 10% IV SCH ×2 (17:00)
[2017-09-24 05:10] VITALS: BP 113/59
[2017-09-24 05:12] LABS: BASOPHILS # (AUTO) 0.01 x10^3/uL (0-0.1); BASOPHILS % (AUTO) 0 % (0-1); EOSINOPHILS # (AUTO) 0.01 x10^3/uL (0-0.4); EOSINOPHILS % (AUTO) 0 % (1-7); LYMPHOCYTES # (AUTO) 0.15 x10^3/uL (1-3.4); LYMPHOCYTES % (AUTO) 2 % (22-44); MD NO; MEAN CORPUSCULAR HEMOGLOBIN 32.9 pg (27.0-34.8); MEAN CORPUSCULAR HGB CONC 33.8 g/dL (32.4-35.8); MEAN CORPUSCULAR VOLUME 97.5 fL (80-100); MEAN PLATELET VOLUME 7.3 fL (7.4-10.4); MONOCYTES # (AUTO) 0.94 x10^3/uL (0.2-0.8); MONOCYTES % (AUTO) 13 % (2-9); NEUTROPHILS # (AUTO) 6.22 x10^3/uL (1.8-6.8); NEUTROPHILS % (AUTO) 85 % (42-75); PLATELET COUNT 171 x10^3/uL (130-400); RED CELL DISTRIBUTION WIDTH 14.2 % (9.6-15.2)
[2017-09-24 05:23] LABS: ALBUMIN 1.9 g/dL (3.4-5.0); ANION GAP 4 mmol/L (5-15); CHLORIDE 102 mmol/L (98-107)
[2017-09-24 05:26] LABS: ALANINE AMINOTRANSFERASE 13 U/L (12-78); ALKALINE PHOSPHATASE 32 U/L (45-117); BILIRUBIN,TOTAL 0.6 mg/dL (0.2-1.0); CREATININE 0.28 mg/dL (0.55-1.02); TOTAL PROTEIN 5.1 g/dL (6.4-8.2)
[2017-09-24] MEDS: HYDROmorphone 2 MG/ML, 1ML IV PRN ×2 (05:57→08:44)
[2017-09-24] MEDS: ONDANSETRON ODT 4 MG PO PRN (06:00)
[2017-09-24] MEDS: ALBUTEROL/IPRATROPIUM 2.5MG/0.5MG, 3 ML NPPB SCH ×5 (07:40→18:36)
[2017-09-24] MEDS ORDERED: FUROSEMIDE 20 MG/2 ML IV ONE (08:30)
[2017-09-24] MEDS: FLUOXETINE HCL 20 MG CAPSULE PO SCH (08:44)
[2017-09-24] MEDS: PANTOPRAZOLE 40 MG IV IVPush SCH ×2 (08:44→20:42)
[2017-09-24] MEDS: INSULIN REGULAR MEDIUM DOSE QDAY SQ-INSULIN SCH (08:54)
[2017-09-24] MEDS: KETOROLAC 30 MG/1 ML IV SCH ×3 (10:45→22:20)
[2017-09-24] MEDS: CEFAZOLIN PMX 1GM/50ML 50 ML IV SCH ×2 (10:45→17:18)
[2017-09-24] MEDS ORDERED: DEXTROSE 70% IV SCH (17:00)
[2017-09-24] MEDS ORDERED: FAT EMUL IV SCH (17:00)
[2017-09-24] MEDS ORDERED: SMOF TPN IV SCH (17:00)
[2017-09-24] MEDS ORDERED: FILTER, DISP 1.2 MICRON FOR TPN/PVN IV PRN (17:00)
[2017-09-24] MEDS ORDERED: AMINO ACID 10% IV SCH (17:00)
[2017-09-24] MEDS ORDERED: [UNRECOGNIZED DRUG - OTHER] IV SCH (17:00)
[2017-09-24] MEDS: HYDROmorphone PCA 30 MG/30 ML IV PRN (23:23)
[2017-09-25] MEDS: CEFAZOLIN PMX 1GM/50ML 50 ML IV SCH ×2 (01:21→10:39)
[2017-09-25] MEDS: KETOROLAC 30 MG/1 ML IV SCH ×4 (04:49→22:22)
[2017-09-25 05:00] VITALS: BP 123/63
[2017-09-25 05:21] LABS: BASOPHILS # (AUTO) 0.01 x10^3/uL (0-0.1); BASOPHILS % (AUTO) 0 % (0-1); EOSINOPHILS # (AUTO) 0.05 x10^3/uL (0-0.4); EOSINOPHILS % (AUTO) 1 % (1-7); LYMPHOCYTES # (AUTO) 0.19 x10^3/uL (1-3.4); LYMPHOCYTES % (AUTO) 3 % (22-44); MD NO; MEAN CORPUSCULAR HEMOGLOBIN 32.9 pg (27.0-34.8); MEAN CORPUSCULAR HGB CONC 33.7 g/dL (32.4-35.8); MEAN CORPUSCULAR VOLUME 97.6 fL (80-100); MEAN PLATELET VOLUME 7.1 fL (7.4-10.4); MONOCYTES # (AUTO) 0.84 x10^3/uL (0.2-0.8); MONOCYTES % (AUTO) 13 % (2-9); NEUTROPHILS # (AUTO) 5.28 x10^3/uL (1.8-6.8); NEUTROPHILS % (AUTO) 83 % (42-75); PLATELET COUNT 177 x10^3/uL (130-400); RED BLOOD COUNT 2.53 x10^6/uL (3.82-5.3); RED CELL DISTRIBUTION WIDTH 14.3 % (9.6-15.2)
[2017-09-25 05:33] LABS: ANION GAP 5 mmol/L (5-15); CALCIUM 8.2 mg/dL (8.5-10.1); CHLORIDE 100 mmol/L (98-107)
[2017-09-25 05:36] LABS: CREATININE 0.25 mg/dL (0.55-1.02)
[2017-09-25] MEDS: ALBUTEROL/IPRATROPIUM 2.5MG/0.5MG, 3 ML NPPB SCH ×4 (06:50→20:00)
[2017-09-25 08:00] VITALS: BP 122/57
[2017-09-25] MEDS ORDERED: FUROSEMIDE 40 MG/4 ML IV ONE (09:00)
[2017-09-25] MEDS: INSULIN REGULAR MEDIUM DOSE QDAY SQ-INSULIN SCH (09:00)
[2017-09-25] MEDS: FLUOXETINE HCL 20 MG CAPSULE PO SCH (09:16)
[2017-09-25 14:00] VITALS: BP 111/59
[2017-09-25] MEDS ORDERED: SMOF TPN IV SCH (17:00)
[2017-09-25] MEDS ORDERED: AMINO ACID 10% IV SCH (17:00)
[2017-09-25] MEDS ORDERED: FILTER, DISP 1.2 MICRON FOR TPN/PVN IV PRN (17:00)
[2017-09-25] MEDS ORDERED: [UNRECOGNIZED DRUG - OTHER] IV SCH (17:00)
[2017-09-25] MEDS ORDERED: DEXTROSE 70% IV SCH (17:00)
[2017-09-25] MEDS ORDERED: FAT EMUL IV SCH (17:00)
[2017-09-25] MEDS: CEFAZOLIN 1,000 MG in DEXTROSE 5% 50 ML IV SCH (18:30)
[2017-09-25 19:55] VITALS: BP_SYST 123; BP_SYST 132; BP_DIAS 57; BP_DIAS 67
[2017-09-26 02:17] VITALS: BP 115/64
[2017-09-26] MEDS: KETOROLAC 30 MG/1 ML IV SCH ×4 (03:42→17:30)
[2017-09-26] MEDS: CEFAZOLIN 1,000 MG in DEXTROSE 5% 50 ML IV SCH ×3 (03:53→18:17)
[2017-09-26 06:08] LABS: ANION GAP 5 mmol/L (5-15); CALCIUM 8.1 mg/dL (8.5-10.1); CHLORIDE 101 mmol/L (98-107); CREATININE 0.21 mg/dL (0.55-1.02)
[2017-09-26] MEDS: FLUOXETINE HCL 20 MG CAPSULE PO SCH (07:50)
[2017-09-26] MEDS: INSULIN REGULAR MEDIUM DOSE QDAY SQ-INSULIN SCH (07:50)
[2017-09-26] MEDS: ALBUTEROL/IPRATROPIUM 2.5MG/0.5MG, 3 ML NPPB SCH ×2 (08:20→12:20)
[2017-09-26 08:50] VITALS: BP 110/60
[2017-09-26] MEDS ORDERED: ALBUTEROL/IPRATROPIUM 2.5MG/0.5MG, 3 ML NPPB PRN (13:00)
[2017-09-26 14:10] VITALS: BP 132/73
[2017-09-26] MEDS ORDERED: [UNRECOGNIZED DRUG - OTHER] IV SCH (17:00)
[2017-09-26] MEDS ORDERED: FILTER, DISP 1.2 MICRON FOR TPN/PVN IV PRN (17:00)
[2017-09-26] MEDS ORDERED: DEXTROSE 70% IV SCH (17:00)
[2017-09-26] MEDS ORDERED: SMOF TPN IV SCH (17:00)
[2017-09-26] MEDS ORDERED: FAT EMUL IV SCH (17:00)
[2017-09-26] MEDS ORDERED: AMINO ACID 10% IV SCH (17:00)
[2017-09-26 20:33] VITALS: BP 119/68
[2017-09-27 00:15] VITALS: BP 129/70
[2017-09-27] MEDS: KETOROLAC 30 MG/1 ML IV SCH ×3 (00:15→08:07)
[2017-09-27] MEDS: CEFAZOLIN 1,000 MG in SODIUM CHLORIDE 0.9% 50 ML IV SCH ×2 (02:07→10:50)
[2017-09-27 06:17] LABS: ANION GAP 5 mmol/L (5-15); CHLORIDE 101 mmol/L (98-107)
[2017-09-27 06:20] LABS: CREATININE 0.24 mg/dL (0.55-1.02)
[2017-09-27 06:22] LABS: BASOPHILS # (AUTO) 0.01 x10^3/uL (0-0.1); BASOPHILS % (AUTO) 0 % (0-1); EOSINOPHILS # (AUTO) 0.11 x10^3/uL (0-0.4); EOSINOPHILS % (AUTO) 2 % (1-7); LYMPHOCYTES % (AUTO) 4 % (22-44); MD NO; MEAN CORPUSCULAR HEMOGLOBIN 32.7 pg (27.0-34.8); MEAN CORPUSCULAR VOLUME 98.9 fL (80-100); MEAN PLATELET VOLUME 7.2 fL (7.4-10.4); MONOCYTES # (AUTO) 0.68 x10^3/uL (0.2-0.8); MONOCYTES % (AUTO) 14 % (2-9); NEUTROPHILS # (AUTO) 3.99 x10^3/uL (1.8-6.8); NEUTROPHILS % (AUTO) 80 % (42-75); PLATELET COUNT 215 x10^3/uL (130-400); RED BLOOD COUNT 2.48 x10^6/uL (3.82-5.3)
[2017-09-27 06:58] VITALS: BP 151/78
[2017-09-27] MEDS: FLUOXETINE HCL 20 MG CAPSULE PO SCH (07:40)
[2017-09-27] MEDS: INSULIN REGULAR MEDIUM DOSE QDAY SQ-INSULIN SCH (07:41)
[2017-09-27] MEDS ORDERED: KETOROLAC 30 MG/1 ML ONE (07:48)
[2017-09-27] MEDS ORDERED: FUROSEMIDE 10 MG/ML ORAL SOL PO SCH (08:30)
[2017-09-27] MEDS: HYDROmorphone 2 MG/ML, 1ML IV PRN ×4 (10:50→23:20)
[2017-09-27] MEDS: ONDANSETRON ODT 4 MG PO PRN (13:00)
[2017-09-27 13:46] VITALS: BP 113/66
[2017-09-27] MEDS ORDERED: FAT EMUL IV SCH (17:00)
[2017-09-27] MEDS ORDERED: [UNRECOGNIZED DRUG - OTHER] IV SCH (17:00)
[2017-09-27] MEDS ORDERED: AMINO ACID 10% IV SCH (17:00)
[2017-09-27] MEDS ORDERED: DEXTROSE 70% IV SCH (17:00)
[2017-09-27] MEDS ORDERED: SMOF TPN IV SCH (17:00)
[2017-09-27] MEDS: CEFAZOLIN 1,000 MG in DEXTROSE 5% 50 ML IV SCH (17:55)
[2017-09-27] MEDS: FILTER, DISP 1.2 MICRON FOR TPN/PVN IV PRN (17:55)
[2017-09-27] MEDS ORDERED: CEFAZOLIN PMX 1GM/50ML 50 ML IV SCH (18:30)
[2017-09-27 18:59] VITALS: BP 119/68
[2017-09-28 01:12] VITALS: BP 123/73
[2017-09-28] MEDS: CEFAZOLIN 1,000 MG in DEXTROSE 5% 50 ML IV SCH ×3 (02:29→18:35)
[2017-09-28 05:09] LABS: BASOPHILS % (AUTO) 0 % (0-1); CHLORIDE 103 mmol/L (98-107); EOSINOPHILS # (AUTO) 0.06 x10^3/uL (0-0.4); EOSINOPHILS % (AUTO) 1 % (1-7); LYMPHOCYTES # (AUTO) 0.17 x10^3/uL (1-3.4); LYMPHOCYTES % (AUTO) 4 % (22-44); MD NO; MEAN CORPUSCULAR HGB CONC 33.7 g/dL (32.4-35.8); MEAN CORPUSCULAR VOLUME 97.9 fL (80-100); MEAN PLATELET VOLUME 6.9 fL (7.4-10.4); MONOCYTES # (AUTO) 0.59 x10^3/uL (0.2-0.8); MONOCYTES % (AUTO) 12 % (2-9); NEUTROPHILS # (AUTO) 4.05 x10^3/uL (1.8-6.8); NEUTROPHILS % (AUTO) 83 % (42-75); PLATELET COUNT 258 x10^3/uL (130-400); RED BLOOD COUNT 2.61 x10^6/uL (3.82-5.3); RED CELL DISTRIBUTION WIDTH 14.5 % (9.6-15.2)
[2017-09-28 05:16] LABS: ANION GAP 6 mmol/L (5-15); CALCIUM 7.6 mg/dL (8.5-10.1); CREATININE 0.22 mg/dL (0.55-1.02)
[2017-09-28] MEDS: HYDROmorphone PCA 30 MG/30 ML IV PRN (05:41)
[2017-09-28] MEDS ORDERED: MAGNESIUM SULFATE PMX 2GM/50ML 50 ML IV ONE (06:30)
[2017-09-28 06:47] VITALS: BP 104/62
[2017-09-28] MEDS: INSULIN REGULAR MEDIUM DOSE QDAY SQ-INSULIN SCH (07:11)
[2017-09-28] MEDS: FLUOXETINE HCL 20 MG CAPSULE PO SCH (08:19)
[2017-09-28 12:31] VITALS: BP 107/62
[2017-09-28 14:32] VITALS: BP 96/60
[2017-09-28] MEDS: ONDANSETRON ODT 4 MG PO PRN ×2 (14:55→21:13)
[2017-09-28] MEDS ORDERED: BISACODYL 10 MG SUPP PR PRN (16:00)
[2017-09-28] MEDS ORDERED: DEXTROSE 70% IV SCH (17:00)
[2017-09-28] MEDS ORDERED: SMOF TPN IV SCH (17:00)
[2017-09-28] MEDS ORDERED: AMINO ACID 10% IV SCH (17:00)
[2017-09-28] MEDS ORDERED: FAT EMUL IV SCH (17:00)
[2017-09-28] MEDS ORDERED: [UNRECOGNIZED DRUG - OTHER] IV SCH (17:00)
[2017-09-28 20:24] VITALS: BP 136/74
[2017-09-28] MEDS: FAMOTIDINE 20 MG TABLET PO SCH (21:13)
[2017-09-28] MEDS: HYDROmorphone 2 MG/ML, 1ML IV PRN (22:01)
[2017-09-29 01:22] VITALS: BP 104/63
[2017-09-29] MEDS: CEFAZOLIN 1,000 MG in DEXTROSE 5% 50 ML IV SCH ×3 (02:15→19:08)
[2017-09-29] MEDS: HYDROmorphone 2 MG/ML, 1ML IV PRN ×2 (02:50→09:46)
[2017-09-29 05:39] LABS: BASOPHILS % (AUTO) 0 % (0-1); EOSINOPHILS # (AUTO) 0.02 x10^3/uL (0-0.4); EOSINOPHILS % (AUTO) 0 % (1-7); LYMPHOCYTES # (AUTO) 0.22 x10^3/uL (1-3.4); LYMPHOCYTES % (AUTO) 4 % (22-44); MD NO; MEAN CORPUSCULAR HEMOGLOBIN 32.1 pg (27.0-34.8); MEAN CORPUSCULAR HGB CONC 33.1 g/dL (32.4-35.8); MEAN PLATELET VOLUME 6.8 fL (7.4-10.4); MONOCYTES # (AUTO) 0.66 x10^3/uL (0.2-0.8); MONOCYTES % (AUTO) 11 % (2-9); NEUTROPHILS # (AUTO) 5.22 x10^3/uL (1.8-6.8); NEUTROPHILS % (AUTO) 85 % (42-75); PLATELET COUNT 314 x10^3/uL (130-400); RED BLOOD COUNT 2.69 x10^6/uL (3.82-5.3); RED CELL DISTRIBUTION WIDTH 14.3 % (9.6-15.2)
[2017-09-29 05:46] LABS: ANION GAP 5 mmol/L (5-15); CALCIUM 8.4 mg/dL (8.5-10.1); CHLORIDE 96 mmol/L (98-107)
[2017-09-29 08:00] VITALS: BP 124/73
[2017-09-29] MEDS ORDERED: FUROSEMIDE 20 MG/2 ML IV ONE (08:00)
[2017-09-29] MEDS: FLUOXETINE HCL 20 MG CAPSULE PO SCH (09:00)
[2017-09-29] MEDS: FAMOTIDINE 20 MG TABLET PO SCH (09:00)
[2017-09-29] MEDS ORDERED: TPN PER PHARMACY MC PRN (09:00)
[2017-09-29] MEDS ORDERED: ZOLPIDEM 5MG TABLET PO PRN (14:30)
[2017-09-29 14:40] VITALS: BP 145/55
[2017-09-29] MEDS ORDERED: [UNRECOGNIZED DRUG - OTHER] IV SCH (17:00)
[2017-09-29] MEDS ORDERED: AMINO ACID 10% IV SCH (17:00)
[2017-09-29] MEDS ORDERED: DEXTROSE 70% IV SCH (17:00)
[2017-09-29] MEDS ORDERED: SMOF TPN IV SCH (17:00)
[2017-09-29] MEDS ORDERED: FAT EMUL IV SCH (17:00)
[2017-09-29] MEDS: FILTER, DISP 1.2 MICRON FOR TPN/PVN IV PRN (19:08)
[2017-09-29] MEDS: PROCHLORPERAZINE 5 MG TABLET PO PRN (19:26)
[2017-09-29 20:09] VITALS: BP 123/81
[2017-09-29 20:18] LABS: MICROSCOPIC INDICATED
[2017-09-29 20:19] LABS: CULTURE INDICATED? YES
[2017-09-30 02:14] VITALS: BP 123/74
[2017-09-30] MEDS: CEFAZOLIN 1,000 MG in DEXTROSE 5% 50 ML IV SCH ×3 (02:19→18:05)
[2017-09-30] MEDS: HYDROmorphone 2 MG/ML, 1ML IV PRN (02:57)
[2017-09-30] MEDS: HYDROmorphone PCA 30 MG/30 ML IV PRN (03:53)
[2017-09-30 04:30] LABS: ALBUMIN 1.9 g/dL (3.4-5.0); ANION GAP 3 mmol/L (5-15); CALCIUM 7.9 mg/dL (8.5-10.1); CHLORIDE 100 mmol/L (98-107)
[2017-09-30 04:37] LABS: ALANINE AMINOTRANSFERASE 30 U/L (12-78); ALKALINE PHOSPHATASE 120 U/L (45-117); BILIRUBIN,TOTAL 0.6 mg/dL (0.2-1.0); CREATININE 0.29 mg/dL (0.55-1.02); PREALBUMIN 9.2 mg/dL (20.0-40.0); TOTAL PROTEIN 5.5 g/dL (6.4-8.2)
[2017-09-30 06:23] LABS: BASOPHILS % (AUTO) 0 % (0-1); EOSINOPHILS # (AUTO) 0.07 x10^3/uL (0-0.4); EOSINOPHILS % (AUTO) 1 % (1-7); LYMPHOCYTES # (AUTO) 0.21 x10^3/uL (1-3.4); LYMPHOCYTES % (AUTO) 4 % (22-44); MD NO; MEAN CORPUSCULAR HEMOGLOBIN 33.1 pg (27.0-34.8); MEAN CORPUSCULAR HGB CONC 33.8 g/dL (32.4-35.8); MEAN CORPUSCULAR VOLUME 97.8 fL (80-100); MEAN PLATELET VOLUME 6.7 fL (7.4-10.4); MONOCYTES # (AUTO) 0.61 x10^3/uL (0.2-0.8); MONOCYTES % (AUTO) 12 % (2-9); NEUTROPHILS # (AUTO) 4.28 x10^3/uL (1.8-6.8); NEUTROPHILS % (AUTO) 83 % (42-75); PLATELET COUNT 324 x10^3/uL (130-400); RED BLOOD COUNT 2.55 x10^6/uL (3.82-5.3); RED CELL DISTRIBUTION WIDTH 14.2 % (9.6-15.2)
[2017-09-30 06:41] VITALS: BP 107/63
[2017-09-30] MEDS: FLUOXETINE HCL 20 MG CAPSULE PO SCH (08:53)
[2017-09-30] MEDS: ENOXAPARIN 30 MG/0.3 ML SQ SCH (13:10)
[2017-09-30 13:32] VITALS: BP 117/69
[2017-09-30] MEDS ORDERED: SMOF TPN IV SCH (17:00)
[2017-09-30] MEDS ORDERED: FAT EMUL IV SCH (17:00)
[2017-09-30] MEDS ORDERED: AMINO ACID 10% IV SCH (17:00)
[2017-09-30] MEDS ORDERED: [UNRECOGNIZED DRUG - OTHER] IV SCH (17:00)
[2017-09-30] MEDS ORDERED: DEXTROSE 70% IV SCH (17:00)
[2017-09-30] MEDS: FILTER, DISP 1.2 MICRON FOR TPN/PVN IV PRN (17:56)
[2017-09-30 19:20] VITALS: BP 110/64
[2017-10-01] MEDS: ENOXAPARIN 30 MG/0.3 ML SQ SCH ×2 (00:43→13:12)
[2017-10-01 02:03] VITALS: BP 111/69
[2017-10-01] MEDS: CEFAZOLIN 1,000 MG in DEXTROSE 5% 50 ML IV SCH ×3 (02:50→18:24)
[2017-10-01 05:03] LABS: BASOPHILS % (AUTO) 0 % (0-1); EOSINOPHILS % (AUTO) 2 % (1-7); LYMPHOCYTES % (AUTO) 6 % (22-44); MD NO; MEAN CORPUSCULAR HGB CONC 33.3 g/dL (32.4-35.8); MONOCYTES # (AUTO) 0.73 x10^3/uL (0.2-0.8); MONOCYTES % (AUTO) 14 % (2-9); NEUTROPHILS # (AUTO) 4.06 x10^3/uL (1.8-6.8); NEUTROPHILS % (AUTO) 78 % (42-75); PLATELET COUNT 319 x10^3/uL (130-400); RED BLOOD COUNT 2.51 x10^6/uL (3.82-5.3); RED CELL DISTRIBUTION WIDTH 14.6 % (9.6-15.2)
[2017-10-01 05:12] LABS: ANION GAP 7 mmol/L (5-15); CALCIUM 7.5 mg/dL (8.5-10.1); CHLORIDE 101 mmol/L (98-107)
[2017-10-01 06:30] VITALS: BP 123/73
[2017-10-01] MEDS: FLUOXETINE HCL 20 MG CAPSULE PO SCH (08:51)
[2017-10-01 13:38] VITALS: BP 133/73
[2017-10-01] MEDS ORDERED: DEXTROSE 70% IV SCH (17:00)
[2017-10-01] MEDS ORDERED: AMINO ACID 10% IV SCH (17:00)
[2017-10-01] MEDS ORDERED: [UNRECOGNIZED DRUG - OTHER] IV SCH (17:00)
[2017-10-01] MEDS ORDERED: SMOF TPN IV SCH (17:00)
[2017-10-01] MEDS ORDERED: FAT EMUL IV SCH (17:00)
[2017-10-01] MEDS ORDERED: FILTER, DISP 1.2 MICRON FOR TPN/PVN IV PRN (17:00)
[2017-10-01 19:34] VITALS: BP 130/70
[2017-10-01] MEDS: CEFAZOLIN 1,000 MG in SODIUM CHLORIDE 0.9% 50 ML IV SCH (21:56)
[2017-10-02] MEDS: ENOXAPARIN 30 MG/0.3 ML SQ SCH ×2 (00:16→12:25)
[2017-10-02 02:21] VITALS: BP 156/83
[2017-10-02] MEDS: CEFAZOLIN 1,000 MG in SODIUM CHLORIDE 0.9% 50 ML IV SCH (05:41)
[2017-10-02 06:06] LABS: ANION GAP 5 mmol/L (5-15); CALCIUM 7.7 mg/dL (8.5-10.1); CHLORIDE 100 mmol/L (98-107); CREATININE 0.23 mg/dL (0.55-1.02)
[2017-10-02 07:21] VITALS: BP 149/72
[2017-10-02] MEDS: FLUOXETINE HCL 20 MG CAPSULE PO SCH (08:03)
[2017-10-02 13:15] VITALS: BP 117/68
[2017-10-02] MEDS ORDERED: DEXTROSE 70% IV SCH (17:00)
[2017-10-02] MEDS ORDERED: FILTER, DISP 1.2 MICRON FOR TPN/PVN IV PRN (17:00)
[2017-10-02] MEDS ORDERED: SMOF TPN IV SCH (17:00)
[2017-10-02] MEDS ORDERED: [UNRECOGNIZED DRUG - OTHER] IV SCH (17:00)
[2017-10-02] MEDS ORDERED: FAT EMUL IV SCH (17:00)
[2017-10-02] MEDS ORDERED: AMINO ACID 10% IV SCH (17:00)
[2017-10-02] MEDS: OXYcodone/APAP 5/325MG TABLET PO PRN (17:48)
[2017-10-02 19:09] VITALS: BP 135/71
[2017-10-02] MEDS: ONDANSETRON 2MG/ML, 2ML IVPush PRN (21:06)
[2017-10-03] MEDS: ENOXAPARIN 30 MG/0.3 ML SQ SCH ×2 (00:28→11:50)
[2017-10-03] MEDS: OXYcodone/APAP 5/325MG TABLET PO PRN ×5 (00:33→21:57)
[2017-10-03 00:41] VITALS: BP 114/71
[2017-10-03] MEDS: ONDANSETRON 2MG/ML, 2ML IVPush PRN (02:38)
[2017-10-03] MEDS: PROCHLORPERAZINE 5 MG TABLET PO PRN ×2 (03:45→10:06)
[2017-10-03 07:18] VITALS: BP 108/64
[2017-10-03] MEDS: FLUOXETINE HCL 20 MG CAPSULE PO SCH (09:01)
[2017-10-03 13:28] VITALS: BP 124/72
[2017-10-03 20:35] VITALS: BP 112/77
[2017-10-04 01:32] VITALS: BP 137/77
[2017-10-04] MEDS: ENOXAPARIN 30 MG/0.3 ML SQ SCH ×3 (01:52→23:55)
[2017-10-04] MEDS: OXYcodone/APAP 5/325MG TABLET PO PRN ×3 (01:53→13:37)
[2017-10-04] MEDS: ONDANSETRON 2MG/ML, 2ML IVPush PRN (02:20)
[2017-10-04 04:47] LABS: ANION GAP 5 mmol/L (5-15); CALCIUM 7.9 mg/dL (8.5-10.1); CHLORIDE 100 mmol/L (98-107); CREATININE 0.23 mg/dL (0.55-1.02)
[2017-10-04 04:51] LABS: BASOPHILS # (AUTO) 0.01 x10^3/uL (0-0.1); BASOPHILS % (AUTO) 0 % (0-1); EOSINOPHILS # (AUTO) 0.04 x10^3/uL (0-0.4); EOSINOPHILS % (AUTO) 1 % (1-7); LYMPHOCYTES % (AUTO) 4 % (22-44); MD NO; MEAN CORPUSCULAR HEMOGLOBIN 32.8 pg (27.0-34.8); MEAN CORPUSCULAR HGB CONC 32.9 g/dL (32.4-35.8); MEAN CORPUSCULAR VOLUME 99.5 fL (80-100); MEAN PLATELET VOLUME 6.9 fL (7.4-10.4); MONOCYTES # (AUTO) 0.45 x10^3/uL (0.2-0.8); MONOCYTES % (AUTO) 7 % (2-9); NEUTROPHILS # (AUTO) 5.93 x10^3/uL (1.8-6.8); NEUTROPHILS % (AUTO) 88 % (42-75); PLATELET COUNT 381 x10^3/uL (130-400); RED BLOOD COUNT 2.83 x10^6/uL (3.82-5.3); RED CELL DISTRIBUTION WIDTH 15.5 % (9.6-15.2)
[2017-10-04] MEDS: HYDROmorphone 2 MG/ML, 1ML IV PRN ×2 (05:04→15:28)
[2017-10-04 07:50] VITALS: BP 121/73
[2017-10-04] MEDS: FLUOXETINE HCL 20 MG CAPSULE PO SCH (08:46)
[2017-10-04] MEDS: FAMOTIDINE 20 MG TABLET PO SCH ×2 (12:32→20:24)
[2017-10-04 14:30] VITALS: BP 135/73
[2017-10-04 20:19] VITALS: BP 147/80
[2017-10-04] MEDS: HYDROcodone/APAP 10/325 MG TABLET PO PRN (23:55)
[2017-10-05 03:09] VITALS: BP 156/78
[2017-10-05] MEDS: FAMOTIDINE 20 MG TABLET PO SCH (08:16)
[2017-10-05] MEDS: FLUOXETINE HCL 20 MG CAPSULE PO SCH (08:16)
[2017-10-05 08:31] VITALS: BP 124/75
[2017-10-05] MEDS: HYDROcodone/APAP 10/325 MG TABLET PO PRN (11:13)
[2017-10-05] MEDS: ENOXAPARIN 30 MG/0.3 ML SQ SCH (12:22)
[2017-10-05 14:19] VITALS: BP 136/84
[2017-10-05] MEDS ORDERED: TRAM50TA2 PO (14:32)
[2017-10-05] MEDS ORDERED: HYDR-3307 PO (14:32)
[2017-10-05] MEDS ORDERED: ONDA4TAB13 PO (14:32)
== END 2017-10-05 15:50 | disposition home or self-care (01) | DRG 335 ==
LOC: ED 11:22 → EDIP 11:31 → 3NW 11:49 → CCU 09-22 20:02 → 5SO 09-25 16:15 → 4NOR 09-28 14:18
PROVIDERS: ADMIT Family Medicine; ATTEND Family Medicine
PROC: 0T9B70Z Drainage of Bladder with Drainage Device, Via Natural or Artificial Opening (ICD-10-PCS; 2017-09-15)
PROC: 0D9670Z Drainage of Stomach with Drainage Device, Via Natural or Artificial Opening (ICD-10-PCS; 2017-09-16)
PROC: 02HV33Z Insertion of Infusion Device into Superior Vena Cava, Percutaneous Approach (ICD-10-PCS; 2017-09-18)
PROC: B5181ZA Fluoroscopy of Superior Vena Cava using Low Osmolar Contrast, Guidance (ICD-10-PCS; 2017-09-18)
PROC: 3E0336Z Introduction of Nutritional Substance into Peripheral Vein, Percutaneous Approach (ICD-10-PCS; 2017-09-19)
PROC: 0WUF0JZ Supplement Abdominal Wall with Synthetic Substitute, Open Approach (ICD-10-PCS; 2017-09-22)
PROC: 0WPFXJZ Removal of Synthetic Substitute from Abdominal Wall, External Approach (ICD-10-PCS; 2017-09-22)
PROC: 0DN80ZZ Release Small Intestine, Open Approach (ICD-10-PCS; principal; 2017-09-22 15:00)
DX: K56.600 Partial intestinal obstruction, unspecified as to cause (principal); J18.9 Pneumonia, unspecified organism; J96.01 Acute respiratory failure with hypoxia; J81.1 Chronic pulmonary edema; E87.2 Acidosis; K43.0 Incisional hernia with obstruction, without gangrene; E87.1 Hypo-osmolality and hyponatremia; J44.0 Chronic obstructive pulmonary disease with (acute) lower respiratory infection; N39.0 Urinary tract infection, site not specified; C76.0 Malignant neoplasm of head, face and neck; K56.7 Ileus, unspecified; F32.9 Major depressive disorder, single episode, unspecified; F17.210 Nicotine dependence, cigarettes, uncomplicated; E87.70 Fluid overload, unspecified; R73.9 Hyperglycemia, unspecified; D64.9 Anemia, unspecified; E87.8 Other disorders of electrolyte and fluid balance, not elsewhere classified; K21.9 Gastro-esophageal reflux disease without esophagitis; K27.9 Peptic ulcer, site unspecified, unspecified as acute or chronic, without hemorrhage or perforation; K66.0 Peritoneal adhesions (postprocedural) (postinfection); N28.9 Disorder of kidney and ureter, unspecified; Z66 Do not resuscitate; Z79.899 Other long term (current) drug therapy; Z80.1 Family history of malignant neoplasm of trachea, bronchus and lung; Z92.3 Personal history of irradiation; Z87.11 Personal history of peptic ulcer disease; Z85.89 Personal history of malignant neoplasm of other organs and systems; Z90.49 Acquired absence of other specified parts of digestive tract
CPT/HCPCS: 36415; 36569; 36600; 71045; 74018; 74177; 74250; 76937; 77001; 80048; 80053; 81001; 82803; 82962; 83690; 83735; 84100; 84134; 84478; 85025; 85610; 85730; 87081; 87086; 94640; 96374; 96375; C1729; J0610; J0690; J1100; J1170; J1650; J1885; J1940; J2250; J2405; J2704; J2710; J2780; J3010; J3475; J3480; J3490; J7620; Q0162; Q9967; C1751; C1781; C9113; J0330; J0780; J2270; J2370; J3420; J7030; J7040; Q0164; S0028

== ENCOUNTER 2018-08-05 03:22 | Inpatient (IN) | payer MEDICARE, OTHER ==
[~2018-08-05] VITALS: Ht 162.6 cm; Wt 61.5 kg
[~2018-08-05 03:22] MED LIST changes: +HYDR-3307 PO; +OCUVITE SOFTGE1 EACH PO; +ONDA4TAB13 PO; -VIT1CAPS10 PO
--- NOTE | 2018-08-05 03:37 | NUR ---
BIB EMS WITH ABDOMINAL PAIN 10/ THAT STARTED AROUND MIDNIGHT. ABDOMEN DISTENDED AND FIRM. SMALL AMOUNT OF EMESIS. ON 4LNC SPO2 86%. PLACED ON 6L OXYGEN MASK SPO2 87%. PLACED ON NON REBREATHER 15L SPO2 97%
--- NOTE | 2018-08-05 03:45 | NUR ---
PA AT BEDSIDE.
[2018-08-05] MEDS ORDERED: HYDROmorphone 2 MG/ML, 1ML ONE ×5 (03:48→22:50)
[2018-08-05] MEDS: HYDROmorphone 2 MG/ML, 1ML IVPush PRN ×8 (03:51→11:20)
--- NOTE | 2018-08-05 03:52 | NUR ---
MEDICATED FOR PAIN, EKG DONE
[2018-08-05] MEDS ORDERED: ALBUTEROL/IPRATROPIUM 2.5MG/0.5MG, 3 ML ONE ×2 (03:57→11:12)
[2018-08-05] MEDS ORDERED: ALBUTEROL/IPRATROPIUM 2.5MG/0.5MG, 3 ML NPPB ONE (04:00)
[2018-08-05] MEDS ORDERED: HYDROmorphone 1 MG/ML, 1ML VIAL ONE (04:21)
[2018-08-05 04:23] LABS: BASOPHILS # (AUTO) 0.01 x10^3/uL (0-0.1); BASOPHILS % (AUTO) 0 % (0-1); EOSINOPHILS # (AUTO) 0.08 x10^3/uL (0-0.4); EOSINOPHILS % (AUTO) 1 % (1-7); LYMPHOCYTES # (AUTO) 0.73 x10^3/uL (1-3.4); LYMPHOCYTES % (AUTO) 7 % (22-44); MD NO; MEAN CORPUSCULAR HEMOGLOBIN 33.1 pg (27.0-34.8); MEAN CORPUSCULAR HGB CONC 33.5 g/dL (32.4-35.8); MEAN CORPUSCULAR VOLUME 98.8 fL (80-100); MEAN PLATELET VOLUME 7.2 fL (7.4-10.4); MONOCYTES # (AUTO) 0.59 x10^3/uL (0.2-0.8); MONOCYTES % (AUTO) 6 % (2-9); NEUTROPHILS % (AUTO) 87 % (42-75); PLATELET COUNT 232 x10^3/uL (130-400); RED BLOOD COUNT 4.68 x10^6/uL (3.82-5.3); RED CELL DISTRIBUTION WIDTH 14.1 % (9.6-15.2)
--- NOTE | 2018-08-05 04:26 | NUR ---
PT MEDICATED FOR COMPLAINT OF CONTINUED PAIN. PT NOW ON OPTIFLOW. POC DISCUSSED. PT GIVEN MOUTH SWABS PER REQUEST. PT DENIES FURTHER NEEDS AT THIS TIME. FAMILY REMAINS AT BEDSIDE.
[2018-08-05 04:27] LABS: ALANINE AMINOTRANSFERASE 18 U/L (12-78); ALBUMIN 3.5 g/dL (3.4-5.0); ANION GAP 4 mmol/L (5-15); CALCIUM 9.2 mg/dL (8.5-10.1); CHLORIDE 101 mmol/L (98-107)
--- NOTE | 2018-08-05 04:30 | NUR ---
LAB WAS CALLED ABOUT PENDING ISTAT THAT HAS BEEN ORDERED. THEY STATES "IT MUST HAVE BEEN MISSED". REQUESTED IT BE DONE STAT.
[2018-08-05 04:32] LABS: ALKALINE PHOSPHATASE 64 U/L (45-117); BILIRUBIN,TOTAL 0.2 mg/dL (0.2-1.0); CREATININE 0.63 mg/dL (0.55-1.02); TOTAL PROTEIN 7.3 g/dL (6.4-8.2); TROPONIN I < 0.015 ng/mL (0.000-0.045)
--- NOTE | 2018-08-05 04:44 | NUR ---
PT TO CT
[2018-08-05] MEDS ORDERED: SODIUM CHLORIDE 0.9% 1,000ML IVBOLUS ONE (05:00)
--- NOTE | 2018-08-05 05:07 | NUR ---
BACK FROM CT. STARTED IV FLUIDS.
[2018-08-05] MEDS ORDERED: OMNIPAQUE 350 MG/ML, 100ML BOTTLE ONE (05:31)
[2018-08-05] MEDS ORDERED: SODIUM CHLORIDE 0.9% 1,000 ML IV ONE (06:05)
--- NOTE | 2018-08-05 06:08 | NUR ---
REPORT GIVEN TO AVELINA IN OR. PT TAKEN TO OR ON NONREBREATHER. UPDATE GIVEN TO PT. PT REFUSED NG TUBE AND OR AT BEDSIDE. UPDATE GIVEN TO DAUGHTER ZACH
[2018-08-05] MEDS ORDERED: ONDANSETRON 2MG/ML, 2ML IVPush PRN (06:30)
[2018-08-05] MEDS ORDERED: HYDROmorphone 1 MG/ML, 1ML INJ IVPush PRN (06:30)
[2018-08-05] MEDS ORDERED: FENTANYL PF 250 MCG/5ML ONE (06:38)
[2018-08-05] MEDS ORDERED: LABETALOL 5MG/ML, 20ML IV PRN (07:30)
[2018-08-05] MEDS ORDERED: ALBUTEROL SULFATE 2.5 MG/3 ML NPPB PRN ×2 (07:30→16:00)
[2018-08-05] MEDS ORDERED: PROCHLORPERAZINE 5 MG/ML, 2ML IV PRN (07:30)
[2018-08-05] MEDS ORDERED: hydrALAzine 20 MG/ML, 1ML IV PRN (07:30)
[2018-08-05] MEDS ORDERED: ALBUTEROL/IPRATROPIUM 2.5MG/0.5MG, 3 ML NPPB PRN (07:30)
[2018-08-05] MEDS ORDERED: MEPERIDINE/PF 25MG/0.5ML IVPush PRN (07:30)
[2018-08-05] MEDS ORDERED: METOPROLOL 1 MG/ML, 5ML IV PRN (07:30)
[2018-08-05] MEDS ORDERED: PROMETHAZINE 25 MG/ML, 1ML IV PRN (07:30)
[2018-08-05] MEDS ORDERED: MIDAZOLAM 1 MG/ML, 2ML ONE (07:30)
[2018-08-05] MEDS ORDERED: DIPHENHYDRAMINE 50 MG/ML, 1ML IVPush PRN (07:30)
[2018-08-05] MEDS ORDERED: FENTANYL PF 100 MCG/2ML IV PRN (07:30)
[2018-08-05] MEDS ORDERED: HALOPERIDOL 5 MG/ML IV PRN (07:30)
[2018-08-05] MEDS ORDERED: MEPERIDINE/PF 25MG/ML,1ML ONE (10:56)
[2018-08-05] MEDS ORDERED: HALOPERIDOL 5 MG/ML ONE (10:56)
[2018-08-05] MEDS ORDERED: morphine SULFATE 10 MG/ML, 1ML IV PRN (12:30)
[2018-08-05] MEDS ORDERED: ONDANSETRON 2MG/ML, 2ML IV PRN (12:30)
[2018-08-05] MEDS ORDERED: LACTATED RINGERS 1,000 ML IV SCH (12:30)
[2018-08-05] MEDS ORDERED: SUCCINYLCHOLINE 20 MG/ML, 10ML ONE (15:43)
[2018-08-05] MEDS ORDERED: DEXAMETHASONE 4 MG/ML, 1ML ONE (15:43)
[2018-08-05] MEDS ORDERED: GLYCOPYRROLATE 0.2MG/1ML, 5ML ONE (15:43)
[2018-08-05] MEDS ORDERED: ONDANSETRON 2MG/ML, 2ML ONE (15:43)
[2018-08-05] MEDS ORDERED: CEFOTETAN 2 GM ONE (15:43)
[2018-08-05] MEDS ORDERED: ROCURONIUM 10MG/ML,5ML ONE (15:43)
[2018-08-05] MEDS ORDERED: PROPOFOL 10 MG/ML, 20ML ONE (15:43)
[2018-08-05] MEDS ORDERED: PHENYLEPHRINE 10 MG/ML ONE (15:43)
[2018-08-05] MEDS ORDERED: NEOSTIGMINE 1 MG/ML, 10ML ONE (15:43)
[2018-08-05] MEDS ORDERED: EPHEDRINE 50 MG/ML, 1ML ONE (15:43)
[2018-08-05 15:45] VITALS: BP 100/61
[2018-08-05] MEDS: KETOROLAC 30 MG/1 ML IV PRN (16:05)
[2018-08-05 17:32] LABS: MICROSCOPIC NOT IND
[2018-08-05 17:36] LABS: CULTURE INDICATED? NO
[2018-08-05] MEDS ORDERED: SODIUM CHLORIDE 0.9%, 500ML IVBOLUS ONE (19:00)
[2018-08-05] MEDS: HYDROmorphone 1 MG/ML, 1ML INJ IV PRN ×2 (21:18→22:52)
[2018-08-05 21:38] VITALS: BP 112/63
[2018-08-06 00:03] VITALS: BP 113/63
[2018-08-06] MEDS ORDERED: HYDROmorphone 2 MG/ML, 1ML ONE ×7 (00:19→19:49)
[2018-08-06] MEDS: HYDROmorphone 1 MG/ML, 1ML INJ IV PRN ×3 (00:25→19:36)
[2018-08-06] MEDS ORDERED: SODIUM CHLORIDE 0.9%, 500ML IVBOLUS ONE (01:00)
[2018-08-06] MEDS: KETOROLAC 30 MG/1 ML IV PRN ×2 (01:30→08:15)
[2018-08-06 04:00] VITALS: BP 121/68
[2018-08-06] MEDS: ENOXAPARIN 40 MG/0.4 ML SQ SCH (06:01)
[2018-08-06] MEDS: LACTATED RINGERS 1,000 ML IV SCH ×3 (06:01→23:02)
[2018-08-06 06:05] LABS: ALBUMIN 2.5 g/dL (3.4-5.0); ANION GAP 6 mmol/L (5-15); CALCIUM 8.1 mg/dL (8.5-10.1); CHLORIDE 106 mmol/L (98-107)
[2018-08-06 06:10] LABS: ALANINE AMINOTRANSFERASE 76 U/L (12-78); ALKALINE PHOSPHATASE 41 U/L (45-117); BILIRUBIN,TOTAL 0.9 mg/dL (0.2-1.0); CREATININE 0.65 mg/dL (0.55-1.02); TOTAL PROTEIN 5.3 g/dL (6.4-8.2)
[2018-08-06 06:24] LABS: BASOPHILS # (AUTO) 0.01 x10^3/uL (0-0.1); BASOPHILS % (AUTO) 0 % (0-1); EOSINOPHILS % (AUTO) 0 % (1-7); HEMOGRAM NOTE RECHECKED; LYMPHOCYTES % (AUTO) 5 % (22-44); MD NO; MEAN CORPUSCULAR HEMOGLOBIN 33.1 pg (27.0-34.8); MEAN CORPUSCULAR HGB CONC 33.6 g/dL (32.4-35.8); MEAN CORPUSCULAR VOLUME 98.4 fL (80-100); MEAN PLATELET VOLUME 7.1 fL (7.4-10.4); MONOCYTES # (AUTO) 0.44 x10^3/uL (0.2-0.8); MONOCYTES % (AUTO) 10 % (2-9); NEUTROPHILS # (AUTO) 3.68 x10^3/uL (1.8-6.8); NEUTROPHILS % (AUTO) 85 % (42-75); PLATELET COUNT 169 x10^3/uL (130-400); RED BLOOD COUNT 3.55 x10^6/uL (3.82-5.3); RED CELL DISTRIBUTION WIDTH 14.1 % (9.6-15.2)
[2018-08-06 09:05] VITALS: BP 105/52
[2018-08-06] MEDS: HYDROmorphone 2 MG/ML, 1ML IVPush PRN ×2 (09:51→13:02)
[2018-08-06 13:16] VITALS: BP 110/71
[2018-08-06] MEDS: ALBUTEROL SULFATE 2.5 MG/3 ML NPPB SCH ×2 (13:56→19:56)
[2018-08-06 20:50] VITALS: BP 117/62
[2018-08-07] MEDS ORDERED: HYDROmorphone 2 MG/ML, 1ML ONE ×5 (00:21→17:36)
[2018-08-07] MEDS: HYDROmorphone 1 MG/ML, 1ML INJ IV PRN ×5 (00:25→17:44)
[2018-08-07 01:30] VITALS: BP 115/69
[2018-08-07] MEDS: ALBUTEROL SULFATE 2.5 MG/3 ML NPPB SCH ×4 (02:27→22:02)
[2018-08-07 05:06] LABS: MEAN CORPUSCULAR HEMOGLOBIN 32.9 pg (27.0-34.8); MEAN CORPUSCULAR HGB CONC 33.4 g/dL (32.4-35.8); MEAN CORPUSCULAR VOLUME 98.4 fL (80-100); MEAN PLATELET VOLUME 7.4 fL (7.4-10.4); PLATELET COUNT 165 x10^3/uL (130-400); RED BLOOD COUNT 3.39 x10^6/uL (3.82-5.3); RED CELL DISTRIBUTION WIDTH 14.1 % (9.6-15.2)
[2018-08-07 05:13] LABS: ALBUMIN 2.4 g/dL (3.4-5.0); ANION GAP 4 mmol/L (5-15); CALCIUM 8.1 mg/dL (8.5-10.1); CHLORIDE 107 mmol/L (98-107); CREATININE 0.39 mg/dL (0.55-1.02)
[2018-08-07] MEDS: ENOXAPARIN 40 MG/0.4 ML SQ SCH (05:29)
[2018-08-07 05:40] LABS: MD YES
[2018-08-07 05:42] LABS: BAND#(MANUAL) 1.68 x10^3/uL; BANDS%(MANUAL) 48 % (0-7); LYMPH#(MANUAL) 0.21 x10^3/uL (1-3.4); LYMPHS% (MANUAL) 6 % (22-44); METAMYELOCYTES# (MANUAL) 0.14 x10^3/uL (0-0); METAMYELOCYTES% (MANUAL) 4 % (0-1); MONOS#(MANUAL) 0.39 x10^3/uL (0.3-2.7); MONOS% (MANUAL) 11 % (2-9); SEG#(MANUAL) 1.09 x10^3/uL (1.8-6.8); SEGS% (MANUAL) 31 % (42-75)
[2018-08-07 05:43] LABS: <RBC MORPHOLOGY> NORMAL; PMNS WITH VACUOLES 1+
[2018-08-07 05:44] LABS: <PLATELET ESTIMATE> ADEQUATE; <PLT MORPHOLOGY> NORMAL PLT MORPH
[2018-08-07] MEDS: LACTATED RINGERS 1,000 ML IV SCH ×2 (06:32→20:38)
[2018-08-07 07:02] VITALS: BP 142/74
[2018-08-07] MEDS ORDERED: methylPREDNISolone SOD SUCC 125 MG/2 ML IVPush SCH (10:00)
[2018-08-07] MEDS ORDERED: CEFTRIAXONE PMX 1GM/50ML 50 ML IV SCH (11:00)
[2018-08-07] MEDS ORDERED: METRONIDAZOLE PMX 500MG/100ML 100 ML IV SCH (12:00)
[2018-08-07 14:25] VITALS: BP 165/90
[2018-08-07] MEDS: PIPERACILLIN/TAZO/PMX 3.375GM 50 ML IV SCH ×2 (16:22→22:20)
[2018-08-07] MEDS: methylPREDNISolone SOD SUCC 125 MG/2 ML IVPush SCH ×2 (17:44→23:56)
[2018-08-08] MEDS: HYDROmorphone 1 MG/ML, 1ML INJ IV PRN ×5 (00:12→22:25)
[2018-08-08] MEDS: ALBUTEROL SULFATE 2.5 MG/3 ML NPPB SCH ×4 (02:36→18:53)
[2018-08-08 04:25] LABS: MEAN CORPUSCULAR HEMOGLOBIN 33.3 pg (27.0-34.8); MEAN CORPUSCULAR HGB CONC 33.8 g/dL (32.4-35.8); MEAN CORPUSCULAR VOLUME 98.5 fL (80-100); MEAN PLATELET VOLUME 7.2 fL (7.4-10.4); PLATELET COUNT 178 x10^3/uL (130-400); RED BLOOD COUNT 3.04 x10^6/uL (3.82-5.3); RED CELL DISTRIBUTION WIDTH 14.1 % (9.6-15.2)
[2018-08-08 04:27] LABS: ALBUMIN 2.2 g/dL (3.4-5.0); ANION GAP 8 mmol/L (5-15); CALCIUM 7.8 mg/dL (8.5-10.1); CHLORIDE 104 mmol/L (98-107)
[2018-08-08 04:31] LABS: ALANINE AMINOTRANSFERASE 50 U/L (12-78); ALKALINE PHOSPHATASE 36 U/L (45-117); BILIRUBIN,TOTAL 0.5 mg/dL (0.2-1.0); CREATININE 0.29 mg/dL (0.55-1.02); TOTAL PROTEIN 5.4 g/dL (6.4-8.2)
[2018-08-08 05:04] LABS: MD YES
[2018-08-08 05:07] LABS: ANISOCYTOSIS 1+; BAND#(MANUAL) 0.99 x10^3/uL; BANDS%(MANUAL) 22 % (0-7); HYPOCHROMIA 1+; LYMPH#(MANUAL) 0.32 x10^3/uL (1-3.4); LYMPHS% (MANUAL) 7 % (22-44); METAMYELOCYTES# (MANUAL) 0.14 x10^3/uL (0-0); METAMYELOCYTES% (MANUAL) 3 % (0-1); MONOS#(MANUAL) 0.09 x10^3/uL (0.3-2.7); MONOS% (MANUAL) 2 % (2-9); OVALOCYTES 1+; SEG#(MANUAL) 2.97 x10^3/uL (1.8-6.8); SEGS% (MANUAL) 66 % (42-75)
[2018-08-08 05:08] VITALS: BP 129/70
[2018-08-08 05:08] LABS: <PLATELET ESTIMATE> ADEQUATE; <PLT MORPHOLOGY> NORMAL PLT MORPH
[2018-08-08] MEDS: LACTATED RINGERS 1,000 ML IV SCH ×3 (05:08→23:39)
[2018-08-08] MEDS: PIPERACILLIN/TAZO/PMX 3.375GM 50 ML IV SCH ×4 (05:08→22:18)
[2018-08-08] MEDS ORDERED: HYDROmorphone 2 MG/ML, 1ML ONE ×5 (06:01→22:23)
[2018-08-08] MEDS: methylPREDNISolone SOD SUCC 125 MG/2 ML IVPush SCH ×4 (06:08→23:55)
[2018-08-08] MEDS: ENOXAPARIN 40 MG/0.4 ML SQ SCH (06:12)
[2018-08-08] MEDS: PANTOPRAZOLE 40 MG IV IVPush SCH (08:25)
[2018-08-09] MEDS: ALBUTEROL SULFATE 2.5 MG/3 ML NPPB SCH ×5 (01:39→21:31)
[2018-08-09 04:00] VITALS: BP 131/69
[2018-08-09] MEDS: PIPERACILLIN/TAZO/PMX 3.375GM 50 ML IV SCH (04:15)
[2018-08-09 04:52] LABS: BASOPHILS % (AUTO) 0 % (0-1); EOSINOPHILS % (AUTO) 0 % (1-7); LYMPHOCYTES # (AUTO) 0.17 x10^3/uL (1-3.4); LYMPHOCYTES % (AUTO) 4 % (22-44); MD NO; MEAN CORPUSCULAR HEMOGLOBIN 33.2 pg (27.0-34.8); MEAN CORPUSCULAR HGB CONC 33.8 g/dL (32.4-35.8); MEAN CORPUSCULAR VOLUME 98.3 fL (80-100); MEAN PLATELET VOLUME 7.2 fL (7.4-10.4); MONOCYTES # (AUTO) 0.27 x10^3/uL (0.2-0.8); MONOCYTES % (AUTO) 7 % (2-9); NEUTROPHILS # (AUTO) 3.42 x10^3/uL (1.8-6.8); NEUTROPHILS % (AUTO) 89 % (42-75); PLATELET COUNT 177 x10^3/uL (130-400); RED BLOOD COUNT 2.93 x10^6/uL (3.82-5.3)
[2018-08-09 05:01] LABS: ALBUMIN 2.1 g/dL (3.4-5.0); ANION GAP 5 mmol/L (5-15); CALCIUM 7.9 mg/dL (8.5-10.1); CHLORIDE 104 mmol/L (98-107)
[2018-08-09 05:04] LABS: ALANINE AMINOTRANSFERASE 42 U/L (12-78); ALKALINE PHOSPHATASE 31 U/L (45-117); BILIRUBIN,TOTAL 0.7 mg/dL (0.2-1.0); TOTAL PROTEIN 5.2 g/dL (6.4-8.2)
[2018-08-09] MEDS: methylPREDNISolone SOD SUCC 125 MG/2 ML IVPush SCH ×3 (05:53→18:03)
[2018-08-09] MEDS ORDERED: HYDROmorphone 2 MG/ML, 1ML ONE ×3 (05:57→23:40)
[2018-08-09] MEDS: HYDROmorphone 1 MG/ML, 1ML INJ IV PRN ×3 (05:58→23:43)
[2018-08-09] MEDS: LACTATED RINGERS 1,000 ML IV SCH ×2 (08:15→18:04)
[2018-08-09] MEDS: PANTOPRAZOLE 40 MG IV IVPush SCH (08:22)
[2018-08-09 19:59] VITALS: BP 161/81
[2018-08-10] MEDS: methylPREDNISolone SOD SUCC 125 MG/2 ML IVPush SCH ×2 (00:33→06:05)
[2018-08-10] MEDS: LACTATED RINGERS 1,000 ML IV SCH ×3 (00:35→15:43)
[2018-08-10 02:11] VITALS: BP 142/70
[2018-08-10] MEDS ORDERED: HYDROmorphone 2 MG/ML, 1ML ONE ×2 (06:26→18:33)
[2018-08-10] MEDS: HYDROmorphone 1 MG/ML, 1ML INJ IV PRN ×2 (06:28→18:35)
[2018-08-10 07:23] VITALS: BP 163/78
[2018-08-10] MEDS: PANTOPRAZOLE 40 MG IV IVPush SCH (08:09)
[2018-08-10] MEDS: ALBUTEROL SULFATE 2.5 MG/3 ML NPPB SCH ×3 (08:15→20:50)
[2018-08-10] MEDS ORDERED: methylPREDNISolone SOD SUCC 40 MG/ML IV SCH (12:30)
[2018-08-10 13:11] VITALS: BP 189/96
[2018-08-10] MEDS ORDERED: methylPREDNISolone SOD SUCC 40 MG/ML ONE (13:12)
[2018-08-10 13:59] VITALS: BP 143/89
[2018-08-10] MEDS ORDERED: ENALAPRILAT 1.25 MG/ML, 2ML IVPush PRN (14:30)
[2018-08-10] MEDS: methylPREDNISolone SOD SUCC 40 MG/ML IV SCH (19:36)
[2018-08-10 20:15] VITALS: BP 152/78
[2018-08-11 02:31] VITALS: BP 158/79
[2018-08-11] MEDS: ALBUTEROL SULFATE 2.5 MG/3 ML NPPB SCH ×2 (03:00→09:10)
[2018-08-11] MEDS: methylPREDNISolone SOD SUCC 40 MG/ML IV SCH ×3 (04:33→21:26)
[2018-08-11 06:46] LABS: BASOPHILS % (AUTO) 0 % (0-1); EOSINOPHILS % (AUTO) 0 % (1-7); LYMPHOCYTES # (AUTO) 0.19 x10^3/uL (1-3.4); LYMPHOCYTES % (AUTO) 5 % (22-44); MD NO; MEAN CORPUSCULAR HEMOGLOBIN 32.8 pg (27.0-34.8); MEAN CORPUSCULAR HGB CONC 33.5 g/dL (32.4-35.8); MEAN CORPUSCULAR VOLUME 97.9 fL (80-100); MEAN PLATELET VOLUME 7.2 fL (7.4-10.4); MONOCYTES # (AUTO) 0.56 x10^3/uL (0.2-0.8); MONOCYTES % (AUTO) 14 % (2-9); NEUTROPHILS # (AUTO) 3.13 x10^3/uL (1.8-6.8); NEUTROPHILS % (AUTO) 81 % (42-75); PLATELET COUNT 193 x10^3/uL (130-400); RED BLOOD COUNT 3.18 x10^6/uL (3.82-5.3); RED CELL DISTRIBUTION WIDTH 13.7 % (9.6-15.2)
[2018-08-11 06:59] LABS: ALBUMIN 2.3 g/dL (3.4-5.0); ANION GAP 4 mmol/L (5-15); CALCIUM 7.5 mg/dL (8.5-10.1); CHLORIDE 99 mmol/L (98-107)
[2018-08-11 07:00] VITALS: BP 146/76
[2018-08-11 07:03] LABS: ALANINE AMINOTRANSFERASE 33 U/L (12-78); ALKALINE PHOSPHATASE 31 U/L (45-117); BILIRUBIN,TOTAL 0.5 mg/dL (0.2-1.0); CREATININE 0.27 mg/dL (0.55-1.02)
[2018-08-11] MEDS: PANTOPRAZOLE 40 MG IV IVPush SCH (08:16)
[2018-08-11] MEDS ORDERED: ALBUTEROL SULFATE 2.5 MG/3 ML NPPB PRN (09:30)
[2018-08-11 12:40] VITALS: BP 136/73
[2018-08-11] MEDS: LACTATED RINGERS 1,000 ML IV SCH (13:00)
[2018-08-11 19:07] VITALS: BP 158/77
[2018-08-11] MEDS ORDERED: HYDROmorphone 2 MG/ML, 1ML ONE (21:58)
[2018-08-11] MEDS: HYDROmorphone 1 MG/ML, 1ML INJ IV PRN (21:59)
[2018-08-12] VITALS (7 sets, daily range): BP systolic 137–169; BP diastolic 78–89
[2018-08-12] MEDS ORDERED: HYDROmorphone 2 MG/ML, 1ML ONE ×2 (01:12→08:29)
[2018-08-12] MEDS: HYDROmorphone 1 MG/ML, 1ML INJ IV PRN ×2 (01:20→08:35)
[2018-08-12] MEDS: PANTOPRAZOLE 40 MG IV IVPush SCH (08:19)
[2018-08-12] MEDS ORDERED: HYDROmorphone 2 MG/ML, 1ML IV PRN (15:58)
[2018-08-12] MEDS: HYDROcodone/APAP 5/325 TABLET PO PRN ×2 (20:43→21:47)
[2018-08-12] MEDS: LACTATED RINGERS 1,000 ML IV SCH (20:43)
[2018-08-13 01:38] VITALS: BP 133/83
[2018-08-13] MEDS: HYDROcodone/APAP 5/325 TABLET PO PRN ×2 (05:07→11:10)
[2018-08-13 06:48] VITALS: BP 135/80
[2018-08-13] MEDS: PANTOPRAZOLE 40 MG IV IVPush SCH (08:31)
[2018-08-13] MEDS ORDERED: PRED10TA PO (11:58)
[2018-08-13 13:59] VITALS: BP 134/80
[2018-08-13] MEDS ORDERED: HYDR-3240 PO (14:54)
== END 2018-08-13 15:00 | disposition home health service (06) | DRG 329 ==
LOC: ED 04:24 → EDIP 06:05 → 4NOR 11:40 → CCU 08-06 11:24 → 4NOR 08-06 11:34 → CCU 08-07 17:14 → 4NOR 08-09 16:36 → DCLOUNGE 08-13 14:51
PROVIDERS: ADMIT Family Medicine; ATTEND Family Medicine
PROC: 0DNW0ZZ Release Peritoneum, Open Approach (ICD-10-PCS; 2018-08-05)
PROC: 0DB80ZZ Excision of Small Intestine, Open Approach (ICD-10-PCS; 2018-08-05)
PROC: 0WPF0JZ Removal of Synthetic Substitute from Abdominal Wall, Open Approach (ICD-10-PCS; 2018-08-05)
PROC: 3E0T3BZ Introduction of Anesthetic Agent into Peripheral Nerves and Plexi, Percutaneous Approach (ICD-10-PCS; 2018-08-05)
PROC: 5A09357 Assistance with Respiratory Ventilation, Less than 24 Consecutive Hours, Continuous Positive Airway Pressure (ICD-10-PCS; 2018-08-05)
PROC: 0DTF0ZZ Resection of Right Large Intestine, Open Approach (ICD-10-PCS; principal; 2018-08-05 06:00)
DX: K56.2 Volvulus (principal); J96.21 Acute and chronic respiratory failure with hypoxia; E43 Unspecified severe protein-calorie malnutrition; J98.11 Atelectasis; K92.1 Melena; K56.601 Complete intestinal obstruction, unspecified as to cause; D64.9 Anemia, unspecified; D72.819 Decreased white blood cell count, unspecified; D72.825 Bandemia; I35.0 Nonrheumatic aortic (valve) stenosis; F17.210 Nicotine dependence, cigarettes, uncomplicated; J43.9 Emphysema, unspecified; Z66 Do not resuscitate; K46.9 Unspecified abdominal hernia without obstruction or gangrene; Z85.828 Personal history of other malignant neoplasm of skin; Z92.3 Personal history of irradiation; Z88.6 Allergy status to analgesic agent; Z87.11 Personal history of peptic ulcer disease; Z80.1 Family history of malignant neoplasm of trachea, bronchus and lung
CPT/HCPCS: 36415; 36600; 71045; 74018; 74177; 80048; 80053; 81003; 82040; 82803; 83690; 83880; 84484; 85014; 85018; 85025; 86850; 86900; 87081; 88307; 93005; 93306; 94640; 96374; 99291; G0378; J0696; J1100; J1170; J1650; J1885; J2175; J2250; J2405; J2543; J2704; J2710; J3010; J3490; J7613; J7620; Q9967; C1765; C9113; J0330; J2370; J2920; J2930; J7030; J7040; J7120; J7512

== ENCOUNTER → 2019-12-22 | Outpatient (CLI) | payer MEDICARE ==
[~2019-12-22] MED LIST changes: +CLAR-14 PO; -CLAR500T PO; +GADOTERATE 7.5 MMOL/15 ML SYR ONE; +HYDR-3240 PO; +HYDR-3246 PO; -HYDR-3307 PO; +OMEP40CA42 PO; -OMEP40CA6 PO; +PRED10TA PO
== END | disposition home or self-care (01) ==
LOC: EDSTATUS 08:00 → RAD 08:04
PROVIDERS: ATTEND Otolaryngology
DX: C76.0 Malignant neoplasm of head, face and neck (principal); C77.0 Secondary and unspecified malignant neoplasm of lymph nodes of head, face and neck; H70.91 Unspecified mastoiditis, right ear; R22.0 Localized swelling, mass and lump, head
CPT/HCPCS: 70543; A9575